=== PATIENT | male | born 1990 | race Caucasian/White ===

== ENCOUNTER 2022-12-04 16:26 | Emergency (ER) | payer SELFPAY ==
[2022-12-04 16:27] VITALS: BP 138/106; PULSE 76; RESP 16; TEMP 36.6; O2SAT 96; BMI 19.0
--- NOTE | 2022-12-04 16:40 | XRR_ITS ---
PROCEDURE INFORMATION: Exam: XR Chest Exam date and time: 12/04/2022 4:54 PM Age: 32 years old Clinical indication: Cough and dyspnea; Additional info: Dyspnea/cough TECHNIQUE: Imaging protocol: Radiologic exam of the chest. Views: 1 view. COMPARISON: CR XR chest 1V [id number] 01/29/2019 6:29 AM FINDINGS: Lungs: Unremarkable. No consolidation. Pleural spaces: Unremarkable. No pleural effusion. No pneumothorax. Heart/Mediastinum: Unremarkable. No cardiomegaly. Bones/joints: Unremarkable. XR/XR chest 1V portable [id number] IMPRESSION: No acute findings.
--- NOTE | 2022-12-04 16:40 | CTR_ITS ---
PROCEDURE INFORMATION: Exam: CT Abdomen And Pelvis With Contrast Exam date and time: 12/04/2022 5:12 PM Age: 32 years old Clinical indication: Abdominal pain; Prior surgery; Surgery date: Post-operative (0-2 days); Additional info: Abd pain TECHNIQUE: Imaging protocol: Computed tomography of the abdomen and pelvis with contrast. Radiation optimization: All CT scans at this facility use at least one of these dose optimization techniques: automated exposure control; mA and/or kV adjustment per patient size (includes targeted exams where dose is matched to clinical indication); or iterative reconstruction. Contrast material: OMNIPAQUE 350; Contrast volume: 95 ml; Contrast route: INTRAVENOUS (IV); Other protocol: This patient has received 0 known CTs and 0 known cardiac nuclear medicine studies in the 12 months prior to the current study. COMPARISON: CT abdomen pelvis w con* [id number] 09/27/2019 5:51 AM RADIATION DOSE METRICS: Total DLP (mGy-cm): 886.63 FINDINGS: Lungs: 3 mm left lower lobe nodule. Diaphragm: Small hiatal hernia. Liver: Normal. No mass. Gallbladder and bile ducts: Normal. No calcified stones. No ductal dilation. Pancreas: Normal. No ductal dilation. Spleen: Normal. No splenomegaly. Adrenal glands: Normal. No mass. Kidneys and ureters: 2.5 mm calculus in the terminal left ureter with mild left hydronephrosis and columning of the ureter. Mild left parenchymal edema and perinephric stranding. The right kidney and collecting system are normal with normal excretion of contrast. No excretion of contrast in the left collecting system. Stomach and bowel: Unremarkable. No obstruction. No mucosal thickening. Appendix: The appendix is visualized and is normal. Intraperitoneal space: Unremarkable. No free air. No significant fluid collection. Vasculature: Unremarkable. No abdominal aortic aneurysm. Lymph nodes: Unremarkable. No enlarged lymph nodes. Urinary bladder: Unremarkable as visualized. Reproductive: Unremarkable as visualized. Bones/joints: Unremarkable. No acute fracture. Soft tissues: Small fat containing umbilical hernia. CT/CT abdomen pelvis w con* [id number] IMPRESSION: 1. 2.5 mm obstructing calculus in the terminal left ureter with mild hydronephrosis and non excretion of contrast. 2. 3 mm left pulmonary nodule. If the patient does not have known cancer, follow up should be based on clinical information because of the low risk of cancer in this age group. (Reference: Sepideh) References: Sepideh Ibarra, et al. Guidelines for Management of Incidental Pulmonary Nodules Detected on CT Images: From the Fleischner Society 2017. Radiology. 2017;284(1):228-243.
--- NOTE | 2022-12-04 16:42 | W.ED.ABDPA2 ---
Documented by User: Brandyn Sharma DO 12/05/22 06:22 HPI - Abdominal Pain General: Chief Complaint: Abdominal Pain Stated Complaint: ABDOMINAL PAIN Time Seen by Provider: 12/04/22 16:32 Source: patient Mode of arrival: EMS History of Present Illness: 32-year-old male presents to the emergency room with complaints of abdominal discomfort. He has a history of pancreatitis he denies any alcohol use. He states his abdominal pain for last 3 days got markedly worse today a week ago he had a couple episodes of bright red blood. No fever sweats or chills. Symptoms worsened to the point where he called the ambulance. He was given pain meds in route and he is somewhat sleepy now but arousable. He still has severe epigastric and left upper quadrant pain. MD elicited complaint: abdominal pain Pertinent past history: other Onset (ago): hour(s) Location: Epigastric and LUQ Quality: sharp Radiation: none Exacerbating factors: nothing Relieving factors: nothing Associated Symptoms: Reports anorexia, change in stool character, poor appetite and vomiting; Denies belching, bloating, change in bowel habits, chills, coffee ground emesis, constipation, GI cramping, diarrhea, dyspepsia, dysuria, excessive flatus, fever(s), heartburn, hematochezia, hematuria, hematemesis, fecal incontinence, loose stools, melena, nausea and syncope Review of Systems Const: Denies: fever(s) or chills Card: Denies: syncope GI: Reports: vomiting and change in stool character; Denies: nausea, hematemesis, coffee ground emesis, heartburn, diarrhea, constipation, bloating, GI cramping, belching, excessive flatus, fecal incontinence, change in bowel habits, hematochezia or melena : Denies: dysuria or hematuria PFS ED PFSH: Medical History (Updated 12/04/22 @ 19:53 by Carlos Gallegos MD) Pancreatitis Social History (Updated 12/04/22 @ 16:48 by Brandyn Sharma DO) Smoking and tobacco status: current every day smoker Alcohol intake: never Physical Exam Const: GENERAL APPEARANCE: cooperative and comfortable ORIENTATION/CONSCIOUSNESS: Yes awake, Yes oriented to person, Yes oriented to place and Yes oriented to time HENMT: COMMON NORMALS: normocephalic, atraumatic and hearing grossly normal bilaterally HEAD & SCALP: normocephalic and atraumatic Resp: COMMON NORMALS: normal respiratory effort, No retractions, No use of accessory muscles and clear to auscultation bilaterally AUSCULTATION: clear to auscultation bilaterally Cardio: COMMON NORMALS: regular rate, regular rhythm and No murmurs present (Cardio) RATE: regular rate RHYTHM: regular rhythm GI: COMMON NORMALS: No hepatosplenomegaly present AUSCULTATION: Yes normoactive bowel sounds PALPATION: Yes Tenderness to palpation present (GI) (Epigastric) Details: LUQ, No Guarding due to palpation present (GI) and Yes No hepatosplenomegaly present : COMMON NORMALS: Yes no CVA tenderness BLADDER/KIDNEY EXAM: Yes no CVA tenderness Back/Pelvis: COMMON NORMALS: no CVA tenderness Extremity: COMMON NORMALS: normal to inspection, capillary refill normal, no clubbing, cyanosis or edema, no calf tenderness and no pedal edema Neuro: SENSORIUM/ORIENTATION: Yes oriented to person, Yes oriented to place and Yes oriented to time Skin: COMMON NORMALS: no rashes or lesions noted GENERAL SKIN EXAM: no rashes or lesions noted Course Vital Signs: Vital signs: Vital Signs Temperature 97.8 F 12/04/22 16:27 Pulse Rate 81 12/04/22 20:16 Respiratory Rate 20 H 12/04/22 20:16 Blood Pressure 146/110 12/04/22 20:16 Pulse Oximetry 92 12/04/22 20:16 Oxygen Delivery Me thod 12/04/22 19:14 MDM - Abdominal Pain Medical Decision Making CT and UA pending. Care signed out to Dr. Gallegos at change of shift. See final notes for diagnosis and disposition. Patient presents here with abdominal pain he did have a kidney stone likely causing his pain no signs of pancreatitis his pain is improved here we will prescribe Bomoseen we will get him follow-up with urology we will give him a urine strainer he is to follow-up and return if worsening he understands agrees to plan. Lab Data 12/04/22 16:52 12/04/22 16:52 Labs/Radiology: Radiology Impressions Abdomen/Pelvis CT 12/04/22 16:40 IMPRESSION: 1. 2.5 mm obstructing calculus in the terminal left ureter with mild hydronephrosis and non excretion of contrast. 2. 3 mm left pulmonary nodule. If the patient does not have known cancer, follow up should be based on clinical information because of the low risk of cancer in this age group. (Reference: Sepideh) References: Sepideh Ibarra, et al. Guidelines for Management of Incidental Pulmonary Nodules Detected on CT Images: From the Fleischner Society 2017. Radiology. 2017;284(1):228-243. Chest X-Ray 12/04/22 16:40 IMPRESSION: No acute findings. Laboratory Results WBC 7.0 10^3/uL (4.0-10.0) 12/04/22 16:52 RBC 4.81 10^6/uL (4.1-5.3) 12/04/22 16:52 Hgb 14.4 g/dL (11.7-16.6) 12/04/22 16:52 Hct 42.6 % (42.0-52.0) 12/04/22 16:52 MCV 88.6 fl (80-94) 12/04/22 16:52 MCH 29.9 pg (28.0-34.0) 12/04/22 16:52 MCHC 33.8 g/dL (30.0-36.0) 12/04/22 16:52 RDW 11.9 % (12.1-15.1) L 12/04/22 16:52 Plt Count 208 10^3/cmm (130-400) 12/04/22 16:52 MPV 9.1 fL (7.4-10.4) 12/04/22 16:52 Neut % (Auto) 55.8 % 12/04/22 16:52 Lymph % (Auto) 35.2 % 12/04/22 16:52 [place] % (Auto) 6.2 % 12/04/22 16:52 Eos % (Auto) 2.0 % 12/04/22 16:52 Baso % (Auto) 0.4 % 12/04/22 16:52 Neut # (Auto) 3.90 10^3/uL (1.8-7.7) 12/04/22 16:52 Lymph # (Auto) 2.5 10^3/uL (0.8-4.8) 12/04/22 16:52 [place] # (Auto) 0.4 10^3/uL (0.2-0.9) 12/04/22 16:52 Eos # (Auto) 0.1 10^3/uL (0.0-0.8) 12/04/22 16:52 Baso # (Auto) 0.0 10^3/uL (0.0-0.1) 12/04/22 16:52 Nucleated RBC % (auto) 0 % 12/04/22 16:52 Nucleated RBCs # 0.0 /100WBC 12/04/22 16:52 Sodium 139 mmol/L (136-145) 12/04/22 16:52 Potassium 3.8 mmol/L (3.5-5.1) 12/04/22 16:52 Chloride 102 mmol/L (98-107) 12/04/22 16:52 Carbon Dioxide 28 mmol/L (22-29) 12/04/22 16:52 Anion Gap 12.8 (5-19) 12/04/22 16:52 BUN 12 mg/dL (6-20) 12/04/22 16:52 Creatinine 1.0 mg/dL (0.7-1.2) 12/04/22 16:52 GFR Calculation 87.7 mL/min (90-130) L 12/04/22 16:52 Glucose 105 mg/dL (65-115) 12/04/22 16:52 Calculated Osmolality 288 mOsm/kg (285-295) 12/04/22 16:52 Calcium 9.6 mg/dL (8.5-10.5) 12/04/22 16:52 Total Bilirubin 0.3 mg/dL (0.15-1.2) 12/04/22 16:52 AST 8 U/L (0-40) 12/04/22 16:52 ALT 26 U/L (0-41) 12/04/22 16:52 Alkaline Phosphatase 88 U/L (40-130) 12/04/22 16:52 Total Protein 7.4 g/dL (6.6-8.7) 12/04/22 16:52 Albumin 4.5 g/dL (3.5-5.2) 12/04/22 16:52 Globulin 2.9 g/dL (1.3-4.6) 12/04/22 16:52 Lipase 72 U/L (13-60) H 12/04/22 16:52 Urine Color Yellow (Yellow) 12/04/22 19:13 Urine Appearance Clear (CLEAR) 12/04/22 19:13 Urine pH 7 (5-7) 12/04/22 19:13 Ur Specific [place] 1.005 (1.005-1.030) 12/04/22 19:13 Urine Protein Neg (Negative) 12/04/22 19:13 Urine Glucose (UA) Norm (Normal) 12/04/22 19:13 Urine Ketones Negative (Negative) 12/04/22 19:13 Urine Blood Neg (Negative) 12/04/22 19:13 Urine Nitrate Negative (Negative) 12/04/22 19:13 Urine Bilirubin Neg (Negative) 12/04/22 19:13 Urine Urobilinogen Neg mg/dL (Negative) 12/04/22 19:13 Ur Leukocyte Esterase Negative (Negative) 12/04/22 19:13 Discharge Plan Discharge Patient Disposition: Home Clinical Impression: Kidney stone Condition: Stable Prescriptions: New hydrocodone-acetaminophen 5-325 mg tablet 1 tab PO Q6H PRN (Reason: pain) Qty: 14 0RF ondansetron 4 mg tablet,disintegrating 4 mg PO Q6H PRN (Reason: nausea and vomiting) Qty: 14 0RF No Action Tylenol Ex Str Rapid Release 500 mg Tablet 1,000 mg PO Q6H PRN (Reason: Pain) ibuprofen 200 mg Tablet 400 mg PO Q6H PRN (Reason: Pain) Discharge Orders: Discharge ED (Routine); Ordered 12/04/22 Ordered By: Carlos Gallegos Referrals: Manuel Harper MD [Physician] - 1-3 days Discharge Diet: Advance as tolerated Discharge Activity: Resume usual activity Patient Instructions: Kidney Stones (ED), Opioid Safety Coding Level of Care Code ED Soaking Pits Supervisor for Chg Fwd Exam Comprehensive Documented by User: Carlos Gallegos MD 12/04/22 19:56 HPI - Abdominal Pain General: Chief Complaint: Abdominal Pain Stated Complaint: ABDOMINAL PAIN Time Seen by Provider: 12/04/22 16:32 PFSH ED PFSH: Medical History (Updated 12/04/22 @ 19:53 by Carlos Gallegos MD) Pancreatitis Social History (Updated 12/04/22 @ 16:48 by Brandyn Sharma DO) Smoking and tobacco status: current every day smoker Alcohol intake: never Course Vital Signs: Vital signs: Vital Signs Temperature 97.8 F 12/04/22 16:27 Pulse Rate 81 12/04/22 20:16 Respiratory Rate 20 H 12/04/22 20:16 Blood Pressure 146/110 12/04/22 20:16 Pulse Oximetry 92 12/04/22 20:16 Oxygen Delivery Me thod 12/04/22 19:14 MDM - Abdominal Pain Medical Decision Making Patient presents here with abdominal pain he did have a kidney stone likely causing his pain no signs of pancreatitis his pain is improved here we will prescribe Bomoseen we will get him follow-up with urology we will give him a urine strainer he is to follow-up and return if worsening he understands agrees to plan. Lab Data 12/04/22 16:52 12/04/22 16:52 Labs/Radiology: Radiology Impressions Abdomen/Pelvis CT 12/04/22 16:40 IMPRESSION: 1. 2.5 mm obstructing calculus in the terminal left ureter with mild hydronephrosis and non excretion of contrast. 2. 3 mm left pulmonary nodule. If the patient does not have known cancer, follow up should be based on clinical information because of the low risk of cancer in this age group. (Reference: Sepideh) References: Sepideh Ibarra, et al. Guidelines for Management of Incidental Pulmonary Nodules Detected on CT Images: From the Fleischner Society 2017. Radiology. 2017;284(1):228-243. Chest X-Ray 12/04/22 16:40 IMPRESSION: No acute findings. Laboratory Results WBC 7.0 10^3/uL (4.0-10.0) 12/04/22 16:52 RBC 4.81 10^6/uL (4.1-5.3) 12/04/22 16:52 Hgb 14.4 g/dL (11.7-16.6) 12/04/22 16:52 Hct 42.6 % (42.0-52.0) 12/04/22 16:52 MCV 88.6 fl (80-94) 12/04/22 16:52 MCH 29.9 pg (28.0-34.0) 12/04/22 16:52 MCHC 33.8 g/dL (30.0-36.0) 12/04/22 16:52 RDW 11.9 % (12.1-15.1) L 12/04/22 16:52 Plt Count 208 10^3/cmm (130-400) 12/04/22 16:52 MPV 9.1 fL (7.4-10.4) 12/04/22 16:52 Neut % (Auto) 55.8 % 12/04/22 16:52 Lymph % (Auto) 35.2 % 12/04/22 16:52 [place] % (Auto) 6.2 % 12/04/22 16:52 Eos % (Auto) 2.0 % 12/04/22 16:52 Baso % (Auto) 0.4 % 12/04/22 16:52 Neut # (Auto) 3.90 10^3/uL (1.8-7.7) 12/04/22 16:52 Lymph # (Auto) 2.5 10^3/uL (0.8-4.8) 12/04/22 16:52 [place] # (Auto) 0.4 10^3/uL (0.2-0.9) 12/04/22 16:52 Eos # (Auto) 0.1 10^3/uL (0.0-0.8) 12/04/22 16:52 Baso # (Auto) 0.0 10^3/uL (0.0-0.1) 12/04/22 16:52 Nucleated RBC % (auto) 0 % 12/04/22 16:52 Nucleated RBCs # 0.0 /100WBC 12/04/22 16:52 Sodium 139 mmol/L (136-145) 12/04/22 16:52 Potassium 3.8 mmol/L (3.5-5.1) 12/04/22 16:52 Chloride 102 mmol/L (98-107) 12/04/22 16:52 Carbon Dioxide 28 mmol/L (22-29) 12/04/22 16:52 Anion Gap 12.8 (5-19) 12/04/22 16:52 BUN 12 mg/dL (6-20) 12/04/22 16:52 Creatinine 1.0 mg/dL (0.7-1.2) 12/04/22 16:52 GFR Calculation 87.7 mL/min (90-130) L 12/04/22 16:52 Glucose 105 mg/dL (65-115) 12/04/22 16:52 Calculated Osmolality 288 mOsm/kg (285-295) 12/04/22 16:52 Calcium 9.6 mg/dL (8.5-10.5) 12/04/22 16:52 Total Bilirubin 0.3 mg/dL (0.15-1.2) 12/04/22 16:52 AST 8 U/L (0-40) 12/04/22 16:52 ALT 26 U/L (0-41) 12/04/22 16:52 Alkaline Phosphatase 88 U/L (40-130) 12/04/22 16:52 Total Protein 7.4 g/dL (6.6-8.7) 12/04/22 16:52 Albumin 4.5 g/dL (3.5-5.2) 12/04/22 16:52 Globulin 2.9 g/dL (1.3-4.6) 12/04/22 16:52 Lipase 72 U/L (13-60) H 12/04/22 16:52 Urine Color Yellow (Yellow) 12/04/22 19:13 Urine Appearance Clear (CLEAR) 12/04/22 19:13 Urine pH 7 (5-7) 12/04/22 19:13 Ur Specific [place] 1.005 (1.005-1.030) 12/04/22 19:13 Urine Protein Neg (Negative) 12/04/22 19:13 Urine Glucose (UA) Norm (Normal) 12/04/22 19:13 Urine Ketones Negative (Negative) 12/04/22 19:13 Urine Blood Neg (Negative) 12/04/22 19:13 Urine Nitrate Negative (Negative) 12/04/22 19:13 Urine Bilirubin Neg (Negative) 12/04/22 19:13 Urine Urobilinogen Neg mg/dL (Negative) 12/04/22 19:13 Ur Leukocyte Esterase Negative (Negative) 12/04/22 19:13 Discharge Plan Discharge Patient Disposition: Home Clinical Impression: Kidney stone Condition: Stable Prescriptions: New hydrocodone-acetaminophen 5-325 mg tablet 1 tab PO Q6H PRN (Reason: pain) Qty: 14 0RF ondansetron 4 mg tablet,disintegrating 4 mg PO Q6H PRN (Reason: nausea and vomiting) Qty: 14 0RF No Action Tylenol Ex Str Rapid Release 500 mg Tablet 1,000 mg PO Q6H PRN (Reason: Pain) ibuprofen 200 mg Tablet 400 mg PO Q6H PRN (Reason: Pain) Discharge Orders: Discharge ED (Routine); Ordered 12/04/22 Ordered By: Carlos Gallegos Referrals: Manuel Harper MD [Physician] - 1-3 days Discharge Diet: Advance as tolerated Discharge Activity: Resume usual activity Patient Instructions: Kidney Stones (ED), Opioid Safety Coding Level of Care Code ED Soaking Pits Supervisor for Rockg Fwd Exam Comprehensive
--- NOTE | 2022-12-04 16:55 | PC.PHAR ---
pt states he takes no rx medications states just takes ibuprofen and tylenlol prn
[2022-12-04 16:59] LABS: Basophils % 0.4 %; Eosinophils # 0.1 10^3/uL (0.0-0.8); Hematocrit 42.6 % (42.0-52.0); Hemoglobin 14.4 g/dL (11.7-16.6); Lymphocytes # 2.5 10^3/uL (0.8-4.8); Lymphocytes % 35.2 %; Mean Corpuscular HGB Conc 33.8 g/dL (30.0-36.0); Mean Corpuscular Hemoglobin 29.9 pg (28.0-34.0); Mean Corpuscular Volume 88.6 fl (80-94); Mean Platelet Volume 9.1 fL (7.4-10.4); Monocytes # 0.4 10^3/uL (0.2-0.9); Monocytes % 6.2 %; Neutrophils % 55.8 %; Nucleated Red Blood Cells % 0 %; Platelet Count 208 10^3/cmm (130-400); Red Blood Count 4.81 10^6/uL (4.1-5.3); Red Cell Distribution Width 11.9 % (12.1-15.1)
--- NOTE | 2022-12-04 16:59 | ECG_ITS ---
[facility] Test Date: 2022-12-04 Pat Name: Vaughn Mejía Department: Room: Gender: Male Manager Steel: : 1990 Requested By: Brandyn Conroy Order Number: [id number] Elder MD: Ludy Feng M.D. Measurements Intervals [place] Rate: 71 P: 55 MI: 150 QRS: 40 QRSD: 100 T: 34 QT: 377 QTc: 410 Interpretive Statements SINUS RHYTHM POSSIBLE RIGHT VENTRICULAR CONDUCTION DELAY [RSR (QR) IN V1/V2] No previous ECG available for comparison Electronically Signed On 12-04-2022 23:45:31 WOOD MILLING MACHINE HAND by Ludy Feng M.D. [id number]
[2022-12-04 17:18] LABS: Alanine Aminotransferase 26 U/L (0-41); Albumin Level 4.5 g/dL (3.5-5.2); Alkaline Phosphatase 88 U/L (40-130); Anion Gap 12.8 (5-19); Aspartate Amino Transferase 8 U/L (0-40); Blood Urea Nitrogen 12 mg/dL (6-20); Calcium 9.6 mg/dL (8.5-10.5); Carbon Dioxide 28 mmol/L (22-29); Chloride 102 mmol/L (98-107); Creatinine Clr Calc Pharmacy 97.0185; Globulin 2.9 g/dL (1.3-4.6); Glomerular Filtration Rate 87.7 mL/min (90-130); Glucose 105 mg/dL (65-115); Lipase 72 U/L (13-60); Osmolality Calculated 288 mOsm/kg (285-295); Potassium 3.8 mmol/L (3.5-5.1); Sodium 139 mmol/L (136-145); Total Bilirubin 0.3 mg/dL (0.15-1.2); Total Protein 7.4 g/dL (6.6-8.7)
[2022-12-04] MEDS: ondansetron 2 mg/ML SDV 2 mL 4 MG IVP ×2 (17:31→18:25)
[2022-12-04] MEDS: famotidine 20 mg/2 mL INJ 40 MG IVP (17:31)
[2022-12-04] MEDS: sodium chloride 0.9% 1,000 ML 999 ML IV ×2 (17:32→19:01)
[2022-12-04 18:23] VITALS: RESP 20
[2022-12-04] MEDS: morphine 4 mg/mL SDV 1 mL IVP (18:23)
[2022-12-04] MEDS: metoclopramide 5 mg/mL SDV 2 mL 10 MG IVP (18:42)
[2022-12-04] MEDS: diphenhydrAMINE 50 mg/mL SDV 1mL IVP (18:42)
[2022-12-04 19:14] VITALS: BP 151/111; PULSE 81; RESP 16; O2SAT 96
[2022-12-04 19:26] LABS: Add Urine Microscopic? NO; Charge for UA Resulting for Rev
[2022-12-04 19:29] LABS: Bilirubin Urine Neg (Negative); Blood Urine Neg (Negative); Glucose Urine UA Norm (Normal); Ketones Urine Negative (Negative); Leukocyte Esterase Urine Negative (Negative); Nitrate Urine Negative (Negative); Protein Urine Neg (Negative); Specific Gravity, Urine 1.005 (1.005-1.030); Urine Appearance Clear (CLEAR); Urine Color Yellow (Yellow); Urobilinogen Urine Neg (Negative); pH Urine 7 (5-7)
[2022-12-04] MEDS: HYDROcodone-acetaminophen 5-325 mg Tablet 2 TAB PO (20:14)
[2022-12-04 20:16] VITALS: BP 146/110; PULSE 81; RESP 20; O2SAT 92
--- NOTE | 2022-12-05 10:42 | DCPLANNER ---
Addendum entered by Cristal Carrasco 12/10/22 13:06: material requirements planning manager called [facility] to confirm that patients information had been received. material requirements planning manager was told that patients information was received, it will be reviewed, and clinic will call patient with appointment information. Addendum entered by Cristal Carrasco 12/08/22 14:19: material requirements planning manager called phone number [phone] - no one at this number by the name of the patient. material requirements planning manager called phone number [phone] no answer and no voicemail set up. There is no primary care physician listed in chart. Referral faxed to [place]. Addendum entered by Cristal Carrasco 12/05/22 15:25: material requirements planning manager received the following message from the urology clinic regarding follow up appointment: Refer Elsewhere. Thank you. On 12/05/22 @ 11:19 Cristal Carrasco Wrote To Urology Front Office Just to clarify, do I need to refer patient somewhere else, or will an appointment be scheduled for patient when he returns? On 12/05/22 @ 10:43 Elisabeth Ang Wrote To Cristal Carrasco Dr. Harper is out of the office until 12/15/22 material requirements planning manager called phone number [phone] - no one by the name of Vaughn was at that number. material requirements planning manager called phone number [phone] - unable to speak with anyone at this time, and unable to leave a voicemail for patient. Original Note: material requirements planning manager had message to schedule a follow up appointment for patient with urology. material requirements planning manager sent patients information to the front office staff at urology. Patients information will be printed and reviewed. Clinic will call patient with appointment information.
== END 2022-12-04 20:18 | disposition home or self-care (01) ==
PROVIDERS: Family Medicine; Emergency Provider Emergency Medicine
DX: N13.2 Hydronephrosis with renal and ureteral calculous obstruction (principal); F17.210 Nicotine dependence, cigarettes, uncomplicated
CPT/HCPCS: 36415; 71045; 74177; 80053; 81003; 83690; 85025; 93005; 96361; 96374; 96375; 99285; J1200; J2270; J2405; J2765; J3490; J7030

== ENCOUNTER 2022-12-06 02:22 | Emergency (ER) | payer SELFPAY ==
[2022-12-06 02:29] VITALS: BP 146/109; PULSE 124; RESP 28; TEMP 36.8; O2SAT 94
[2022-12-06 02:30] VITALS: BMI 19.0
[2022-12-06 02:44] LABS: Basophils % 0.2 %; Hematocrit 44.8 % (42.0-52.0); Lymphocytes # 1.6 10^3/uL (0.8-4.8); Lymphocytes % 11.8 %; Mean Corpuscular HGB Conc 33.5 g/dL (30.0-36.0); Mean Corpuscular Hemoglobin 29.6 pg (28.0-34.0); Mean Corpuscular Volume 88.4 fl (80-94); Mean Platelet Volume 9.4 fL (7.4-10.4); Monocytes % 7.5 %; Neutrophils # 10.53 10^3/uL (1.8-7.7); Neutrophils % 80.1 %; Nucleated Red Blood Cells % 0 %; Platelet Count 246 10^3/cmm (130-400); Red Blood Count 5.07 10^6/uL (4.1-5.3); White Blood Count 13.1 10^3/uL (4.0-10.0)
[2022-12-06 02:57] LABS: INR 1.13 (0.8-1.2)
[2022-12-06] MEDS: sodium chloride 0.9% 1,000 ML 999 ML IV ×2 (02:58→04:15)
[2022-12-06] MEDS: ketorolac 30 mg/mL INJ 15 MG IVP (02:58)
[2022-12-06] MEDS: ondansetron 2 mg/ML SDV 2 mL 4 MG IVP (02:59)
[2022-12-06 03:00] LABS: Alanine Aminotransferase 21 U/L (0-41); Alkaline Phosphatase 89 U/L (40-130); Anion Gap 22.5 (5-19); Aspartate Amino Transferase 8 U/L (0-40); Blood Urea Nitrogen 13 mg/dL (6-20); Calcium 9.8 mg/dL (8.5-10.5); Carbon Dioxide 22 mmol/L (22-29); Chloride 97 mmol/L (98-107); Creatinine Clr Calc Pharmacy 80.8487; Globulin 3.6 g/dL (1.3-4.6); Glomerular Filtration Rate 71.1 mL/min (90-130); Glucose 133 mg/dL (65-115); Lipase 24 U/L (13-60); Osmolality Calculated 288 mOsm/kg (285-295); Potassium 3.5 mmol/L (3.5-5.1); Sodium 138 mmol/L (136-145); Total Bilirubin 0.9 mg/dL (0.15-1.2); Total Protein 8.6 g/dL (6.6-8.7)
[2022-12-06 03:01] VITALS: RESP 18
[2022-12-06] MEDS: morphine 4 mg/mL SDV 1 mL IVP ×2 (03:01→05:24)
--- NOTE | 2022-12-06 03:09 | XRR_ITS ---
PROCEDURE INFORMATION: Exam: XR Abdomen Exam date and time: 12/06/2022 3:13 AM Age: 32 years old Clinical indication: Abdominal pain; Flank; Left; Additional info: L flank pain HX ureteral stone TECHNIQUE: Imaging protocol: Radiologic exam of the abdomen. Views: Frontal supine view of the abdomen. 1 View. COMPARISON: CT abdomen pelvis w con* [id number] 12/04/2022 5:12 PM FINDINGS: Gastrointestinal tract: No dilated bowel to suggest obstruction. Organs: No specific abnormal calcifications. The distal left ureteral calculus seen on the recent CT scan is not obviously visible, however I do not think it was easily visible on the injection molding supervisor radiograph from the CT exam either. Bones/joints: No significant acute finding. XR/XR KUB portable [id number] IMPRESSION: 1. No definite/visible ureteral calculus, see above discussion. 2. Nonspecific abdomen, no evidence of obstruction. 3. Other details discussed above.
[2022-12-06 04:04] LABS: Add Urine Microscopic? YES; Bilirubin Urine Neg (Negative); Blood Urine 3+ (Negative); Glucose Urine UA Norm (Normal); Ketones Urine 2+ (Negative); Leukocyte Esterase Urine Negative (Negative); Nitrate Urine Negative (Negative); Protein Urine 2+ (Negative); Specific Gravity, Urine 1.025 (1.005-1.030); Urine Appearance Clear (CLEAR); Urine Color Yellow (Yellow); Urobilinogen Urine Neg (Negative); pH Urine 5 (5-7)
[2022-12-06 04:06] LABS: Bacteria Urine TRACE /hpf; Mucus Urine 2+ /hpf; RBC Urine 0-4 /hpf (0-2); Squamous Epithelial Cell Urine 0-4 /hpf (0-5); WBC Urine 0-4 /hpf (0-5)
[2022-12-06 04:07] LABS: Add Urine Culture? No
--- NOTE | 2022-12-06 05:21 | CTR_ITS ---
PROCEDURE INFORMATION: Exam: CT Chest With Contrast; Diagnostic Exam date and time: 12/06/2022 5:37 AM Age: 32 years old Clinical indication: Abdominal pain; Flank; Left; Chest pressure; Additional info: Multiple episodes vomiting, now bloody with pain in chest. , HX of left ureteral stone TECHNIQUE: Imaging protocol: Diagnostic computed tomography of the chest with contrast. Radiation optimization: All CT scans at this facility use at least one of these dose optimization techniques: automated exposure control; mA and/or kV adjustment per patient size (includes targeted exams where dose is matched to clinical indication); or iterative reconstruction. Contrast material: OMNI 350; Contrast volume: 100 ml; Contrast route: INTRAVENOUS (IV); Other protocol: This patient has received [address] and 0 known cardiac nuclear medicine studies in the 12 months prior to the current study. COMPARISON: CR XR chest 1V portable [id number] 12/04/2022 4:54 PM RADIATION DOSE METRICS: Total DLP (mGy-cm): 730.3 FINDINGS: Lungs: Several small 3-5 mm nodules in the lungs. If the patient does not have known cancer, follow up should be based on clinical information because of the low risk of cancer in this age group. (Reference: Sepideh). Mild probable atelectasis in the lower lungs. No other significant parenchymal lung opacity or mass. Pleural spaces: No evidence for pneumomediastinum or pneumothorax. No pleural fluid. Heart: No significant pericardial effusion. Lymph nodes: No significant hilar or mediastinal lymphadenopathy. Vasculature: No definite evidence of acute pulmonary embolus, within limits of this standard CT thorax exam. Generally, the distal segmental and subsegmental/peripheral vessels are not well evaluated/visualized on this exam. No evidence of thoracic aortic dissection or focal aneurysm. Diaphragm: Small hiatal hernia, about 2.5 cm in diameter. Suspect some mucosal/wall thickening involving the esophagus, although this could be a transient appearance. While nonspecific, the findings could represent evidence for esophagitis. Please correlate clinically. No mediastinal gas or fluid. Bones/joints: No significant acute abnormality. Soft tissues: No significant acute abnormality. REFERENCES: Sepideh Ibarra et al. Guidelines for Management of Incidental Pulmonary Nodules Detected on CT Images: From the Fleischner Society 2017. Radiology. 2017;284(1):228-243. PROCEDURE INFORMATION: Exam: CT Abdomen And Pelvis With Contrast Exam date and time: 12/06/2022 5:37 AM Age: 32 years old Clinical indication: Abdominal pain; Flank; Left; Chest pressure; Additional info: Multiple episodes vomiting, now bloody with pain in chest. , HX of left ureteral stone TECHNIQUE: Imaging protocol: Computed tomography of the abdomen and pelvis with contrast. Radiation optimization: All CT scans at this facility use at least one of these dose optimization techniques: automated exposure control; mA and/or kV adjustment per patient size (includes targeted exams where dose is matched to clinical indication); or iterative reconstruction. Contrast material: OMNI 350; Contrast volume: 100 ml; Contrast route: INTRAVENOUS (IV); Other protocol: This patient has received [address] and 0 known cardiac nuclear medicine studies in the 12 months prior to the current study. COMPARISON: CT abdomen pelvis w con* [id number] 12/04/2022 5:12 PM RADIATION DOSE METRICS: Total DLP (mGy-cm): 391.6 FINDINGS: Diaphragm: Small hiatal hernia. Suspect some mucosal/wall thickening involving the lower esophagus, although this could be a transient appearance. While nonspecific, the findings could represent evidence for esophagitis. Please correlate clinically. No lower mediastinal gas or fluid. Liver: There is fatty infiltration of the liver. Gallbladder and bile ducts: Contrast has been excreted into the gallbladder. No other definite gallbladder abnormality by CT. No biliary tree dilation. Pancreas: Unremarkable. Spleen: Unremarkable. Adrenal glands: Unremarkable. Kidneys and ureters: There is delayed excretion of contrast by the left kidney. Slight increased amount of left periureteric and perinephric fluid in the interval. Mild left hydronephrosis and hydroureter, similar to the prior exam. As before, there is a 3 mm distal left ureteral calculus, at the UVJ. The calculus has moved about 5 mm distally when compared with the prior exam. The calculus is now probably in the intramural portion of the distal ureter. It is less likely that it has already been passed into the urinary bladder. Please correlate clinically. There appears to be some edema at the left UVJ. The right kidney appears essentially unremarkable. Stomach and bowel: No significant bowel distention. There are no CT findings to strongly suggest diverticulitis. Appendix: The appendix is visualized and appears normal. Intraperitoneal space: No free intraperitoneal air, or ascites. Vasculature: No evidence for abdominal aortic aneurysm. Lymph nodes: No retroperitoneal adenopathy. Urinary bladder: Possibly some mild diffuse urinary bladder wall thickening. However, evaluation is somewhat limited, as the bladder is not well distended. While nonspecific, this could indicate evidence for cystitis. Please correlate clinically. Reproductive: Essentially unremarkable for age. Bones/joints: No significant acute finding. Soft tissues: Tiny umbilical hernia, containing only fat. CT/CT chest abdpel w/*[id number] IMPRESSION: 1. No pulmonary emboli within limits of this exam, see above. 2. No thoracic aortic dissection or aneurysm 3. Several small lung nodules, see above discussion. 4. Mild probable atelectasis in the lower lungs. 5. Otherwise essentially clear lungs, no pleural fluid. 6. Small hiatal hernia. Possibly some mucosal/wall thickening involving the esophagus, see above discussion. 7. Other findings discussed above. IMPRESSION: 1. As before, there is a 3 mm distal left ureteral calculus, see above details. 2. Mild left hydronephrosis and hydroureter, similar the prior exam. 3. Mild left periureteric and perinephric fluid, slightly increased in the interval. 4. Possible mild urinary bladder wall thickening, see above. 5. No free air or significant bowel distention. No evidence for bowel obstruction. 6. Normal appendix. 7. Small hiatal hernia. Possibly some thickening of the lower esophagus, see above discussion. 8. Other findings discussed above.
[2022-12-06 05:22] VITALS: BP 158/104; PULSE 90; RESP 16; O2SAT 97
[2022-12-06] MEDS: haloperidol inj 5 mg/mL INJ 1 mL 3 MG IVP (05:23)
[2022-12-06 05:24] VITALS: RESP 16
[2022-12-06] MEDS: iohexol 350 mg/mL 500 mL Btl (per mL) IV (05:31)
--- NOTE | 2022-12-06 05:42 | W.ED.NAVMDI ---
Documented by User: Darren Craig DO 12/06/22 18:30 HPI - Nausea/Vomiting/Diarrhea General: Chief complaint: Nausea/Vomiting/Diarrhea Stated complaint: vomitting blood Time Seen by Provider: 12/06/22 02:42 Source: patient History of Present Illness: 32-year-old male diagnosed yesterday with a renal stone. He was placed on pain medication and antiemetic. He returns this morning with continued pain, as well as vomiting he notes that he has vomited multiple times in the last 12 hours especially, despite medication. He began to notice small clumps of red blood in his vomitus which worried him. No fever. He does not believe he has felt the stone pass. He still has some left-sided flank pain. MD elicited complaint: nausea, vomiting and abdominal pain Pertinent past history: other Onset (ago): hour(s) Description of vomiting: watery Associated nausea: Yes Associated abdominal pain: Yes Location of pain: L flank Pain consistency: constant Associated symtoms: Reports chest pain, nausea and short of breath; Denies altered mental status, cough, fevers/chills or headache(s) Review of Systems ENMT: Reports: throat pain Card: Reports: chest pain GI: Reports: nausea : Reports: flank pain Neuro: Denies: headache(s) PFSH ED PFSH: Medical History Pancreatitis Social History Smoking and tobacco status: current every day smoker Alcohol intake: never Physical Exam Const: EXAM LIMITATIONS: no altered mental status GENERAL APPEARANCE: cooperative and ill appearing (mildly) HENMT: COMMON NORMALS: normocephalic and atraumatic HEAD & SCALP: normocephalic and atraumatic Eye: COMMON NORMALS: Equal, round and reactive pupils present and EOMs intact bilaterally PUPIL: Yes Equal, round and reactive pupils present Chest: CHEST: Yes Symmetrical chest wall rise Resp: COMMON NORMALS: normal respiratory effort, No use of accessory muscles and clear to auscultation bilaterally AUSCULTATION: clear to auscultation bilaterally Cardio: COMMON NORMALS: regular rate and regular rhythm RATE: regular rate RHYTHM: regular rhythm GI: COMMON NORMALS: Normal to inspection, nondistended, normoactive bowel sounds present PALPATION: Yes Tenderness to palpation present (GI) Details: LLQ : BLADDER/KIDNEY EXAM: Yes CVA tenderness on the left Back/Pelvis: GENERAL BACK: Yes CVA tenderness Neuro: ROMAN COMA SCALE: document GCS findings [place] coma scale eye opening: Spontaneous Roman coma scale verbal response: Orientated Roman coma scale motor response: Obey commands Roman coma scale total score: 15 Course Vital Signs: Vital signs: Vital Signs Temperature 98.3 F 12/06/22 02:29 Pulse Rate 74 12/06/22 07:25 Respiratory Rate 13 12/06/22 07:25 Blood Pressure 132/80 12/06/22 07:25 Pulse Oximetry 96 12/06/22 07:25 Oxygen Delivery Me thod 12/06/22 07:25 MDM - Nausea/Vomiting/Diarrhea Medical Decision Making CT scan yesterday showed a 2.5 mm calculus. No infection. White blood cell count is 13. Hemoglobin is 15. He felt improvement after Toradol morphine and Zofran here. Since that time, though, he has continued to vomit. Only very small amounts of blood were noted in the vomitus. He complains now of a closing feeling at the base of his throat and of his chest. He thinks this is where the bleeding is coming from. It is possible that he has retched hard enough to create a Clotilde-Jain tear, etc. We will send him to the CT scanner to rule this out. Results are pending. He will be checked out to the oncoming physician at shift change. Lab Data 12/06/22 02:35 12/06/22 02:35 Radiology Impressions KUB X-Ray 12/06/22 03:09 IMPRESSION: 1. No definite/visible ureteral calculus, see above discussion. 2. Nonspecific abdomen, no evidence of obstruction. 3. Other details discussed above. Chest/Abdomen/Pelvis CT 12/06/22 05:21 IMPRESSION: 1. No pulmonary emboli within limits of this exam, see above. 2. No thoracic aortic dissection or aneurysm 3. Several small lung nodules, see above discussion. 4. Mild probable atelectasis in the lower lungs. 5. Otherwise essentially clear lungs, no pleural fluid. 6. Small hiatal hernia. Possibly some mucosal/wall thickening involving the esophagus, see above discussion. 7. Other findings discussed above. IMPRESSION: 1. As before, there is a 3 mm distal left ureteral calculus, see above details. 2. Mild left hydronephrosis and hydroureter, similar the prior exam. 3. Mild left periureteric and perinephric fluid, slightly increased in the interval. 4. Possible mild urinary bladder wall thickening, see above. 5. No free air or significant bowel distention. No evidence for bowel obstruction. 6. Normal appendix. 7. Small hiatal hernia. Possibly some thickening of the lower esophagus, see above discussion. 8. Other findings discussed above. Laboratory Results WBC 13.1 10^3/uL (4.0-10.0) H 12/06/22 02:35 RBC 5.07 10^6/uL (4.1-5.3) 12/06/22 02:35 Hgb 15.0 g/dL (11.7-16.6) 12/06/22 02:35 Hct 44.8 % (42.0-52.0) 12/06/22 02:35 MCV 88.4 fl (80-94) 12/06/22 02:35 MCH 29.6 pg (28.0-34.0) 12/06/22 02:35 MCHC 33.5 g/dL (30.0-36.0) 12/06/22 02:35 RDW 12.0 % (12.1-15.1) L 12/06/22 02:35 Plt Count 246 10^3/cmm (130-400) 12/06/22 02:35 MPV 9.4 fL (7.4-10.4) 12/06/22 02:35 Neut % (Auto) 80.1 % 12/06/22 02:35 Lymph % (Auto) 11.8 % 12/06/22 02:35 Sebastian % (Auto) 7.5 % 12/06/22 02:35 Eos % (Auto) 0.0 % 12/06/22 02:35 Baso % (Auto) 0.2 % 12/06/22 02:35 Neut # (Auto) 10.53 10^3/uL (1.8-7.7) H 12/06/22 02:35 Lymph # (Auto) 1.6 10^3/uL (0.8-4.8) 12/06/22 02:35 Sebastian # (Auto) 1.0 10^3/uL (0.2-0.9) H 12/06/22 02:35 Eos # (Auto) 0.0 10^3/uL (0.0-0.8) 12/06/22 02:35 Baso # (Auto) 0.0 10^3/uL (0.0-0.1) 12/06/22 02:35 Nucleated RBC % (auto) 0 % 12/06/22 02:35 Nucleated RBCs # 0.0 /100WBC 12/06/22 02:35 PT 14.80 SECONDS (12.1-14.9) 12/06/22 02:35 INR 1.13 (0.8-1.2) 12/06/22 02:35 APTT 29.0 SECONDS (23.9-36.7) 12/06/22 02:35 Sodium 138 mmol/L (136-145) 12/06/22 02:35 Potassium 3.5 mmol/L (3.5-5.1) 12/06/22 02:35 Chloride 97 mmol/L (98-107) L 12/06/22 02:35 Carbon Dioxide 22 mmol/L (22-29) 12/06/22 02:35 Anion Gap 22.5 (5-19) H 12/06/22 02:35 BUN 13 mg/dL (6-20) 12/06/22 02:35 Creatinine 1.2 mg/dL (0.7-1.2) 12/06/22 02:35 GFR Calculation 71.1 mL/min (90-130) L 12/06/22 02:35 Glucose 133 mg/dL (65-115) H 12/06/22 02:35 Calculated Osmolality 288 mOsm/kg (285-295) 12/06/22 02:35 Calcium 9.8 mg/dL (8.5-10.5) 12/06/22 02:35 Total Bilirubin 0.9 mg/dL (0.15-1.2) 12/06/22 02:35 AST 8 U/L (0-40) 12/06/22 02:35 ALT 21 U/L (0-41) 12/06/22 02:35 Alkaline Phosphatase 89 U/L (40-130) 12/06/22 02:35 Total Protein 8.6 g/dL (6.6-8.7) 12/06/22 02:35 Albumin 5.0 g/dL (3.5-5.2) 12/06/22 02:35 Globulin 3.6 g/dL (1.3-4.6) 12/06/22 02:35 Lipase 24 U/L (13-60) 12/06/22 02:35 Urine Color Yellow (Yellow) 12/06/22 03:50 Urine Appearance Clear (CLEAR) 12/06/22 03:50 Urine pH 5 (5-7) 12/06/22 03:50 Ur Specific [place] 1.025 (1.005-1.030) 12/06/22 03:50 Urine Protein 2+ (Negative) H 12/06/22 03:50 Urine Glucose (UA) Norm (Normal) 12/06/22 03:50 Urine Ketones 2+ (Negative) H 12/06/22 03:50 Urine Blood 3+ (Negative) H 12/06/22 03:50 Urine Nitrate Negative (Negative) 12/06/22 03:50 Urine Bilirubin Neg (Negative) 12/06/22 03:50 Urine Urobilinogen Neg mg/dL (Negative) 12/06/22 03:50 Ur Leukocyte Esterase Negative (Negative) 12/06/22 03:50 Urine RBC 0-4 /hpf (0-2) H 12/06/22 03:50 Urine WBC 0-4 /hpf (0-5) H 12/06/22 03:50 Ur Squamous Epith Cells 0-4 /hpf (0-5) H 12/06/22 03:50 Amorphous Sediment Not Reportable 12/06/22 03:50 Urine Bacteria Trace /hpf (NONE) 12/06/22 03:50 Urine Mucus 2+ /hpf 12/06/22 03:50 Discharge Plan Discharge Patient Disposition: Home Clinical Impression: Kidney stone Condition: Stable Prescriptions: New Reglan 10 mg tablet 10 mg PO Q6H PRN (Reason: nausea and vomiting) Qty: 20 0RF No Action Tylenol Ex Str Rapid Release 500 mg Tablet 1,000 mg PO Q6H PRN (Reason: Pain) ibuprofen 200 mg Tablet 400 mg PO Q6H PRN (Reason: Pain) hydrocodone-acetaminophen 5-325 mg tablet 1 tab PO Q6H PRN (Reason: pain) Qty: 14 0RF ondansetron 4 mg tablet,disintegrating 4 mg PO Q6H PRN (Reason: nausea and vomiting) Qty: 14 0RF Discharge Orders: Discharge ED (Routine); Ordered 12/06/22 Ordered By: Carlos Gallegos Referrals: Manuel Harper MD [Physician] - 1-3 days Discharge Diet: Advance as tolerated Discharge Activity: Resume usual activity Patient Instructions: Kidney Stones (ED), Opioid Safety Coding Level of Care Code ED [employer] Developer for Chg Fwd Exam Comprehensive Documented by User: Carlos Gallegos MD 12/06/22 07:25 HPI - Nausea/Vomiting/Diarrhea General: Chief complaint: Nausea/Vomiting/Diarrhea Stated complaint: vomitting blood Time Seen by Provider: 12/06/22 02:42 PFSH ED PFSH: Medical History Pancreatitis Social History Smoking and tobacco status: current every day smoker Alcohol intake: never Physical Exam Neuro: ROMAN COMA SCALE: document GCS findings Roman coma scale total score: 15 Course Vital Signs: Vital signs: Vital Signs Temperature 98.3 F 12/06/22 02:29 Pulse Rate 74 12/06/22 07:25 Respiratory Rate 13 12/06/22 07:25 Blood Pressure 132/80 12/06/22 07:25 Pulse Oximetry 96 12/06/22 07:25 Oxygen Delivery Me thod 12/06/22 07:25 MDM - Nausea/Vomiting/Diarrhea Medical Decision Making CT scan yesterday showed a 2.5 mm calculus. No infection. White blood cell count is 13. Hemoglobin is 15. He felt improvement after Toradol morphine and Zofran here. Since that time, though, he has continued to vomit. Only very small amounts of blood were noted in the vomitus. He complains now of a closing feeling at the base of his throat and of his chest. He thinks this is where the bleeding is coming from. It is possible that he has retched hard enough to create a Clotilde-Jain tear, etc. We will send him to the CT scanner to rule this out. Results are pending. He will be checked out to the oncoming physician at shift change. Patient presents here with vomiting along with abdominal pain he still has a kidney stone should pass pain is controlled here his vomiting is controlled he is stable for discharge. Lab Data 12/06/22 02:35 12/06/22 02:35 Radiology Impressions KUB X-Ray 12/06/22 03:09 IMPRESSION: 1. No definite/visible ureteral calculus, see above discussion. 2. Nonspecific abdomen, no evidence of obstruction. 3. Other details discussed above. Chest/Abdomen/Pelvis CT 12/06/22 05:21 IMPRESSION: 1. No pulmonary emboli within limits of this exam, see above. 2. No thoracic aortic dissection or aneurysm 3. Several small lung nodules, see above discussion. 4. Mild probable atelectasis in the lower lungs. 5. Otherwise essentially clear lungs, no pleural fluid. 6. Small hiatal hernia. Possibly some mucosal/wall thickening involving the esophagus, see above discussion. 7. Other findings discussed above.
[2022-12-06 07:25] VITALS: BP 132/80; PULSE 74; RESP 13; O2SAT 96
== END 2022-12-06 07:35 | disposition home or self-care (01) ==
PROVIDERS: Emergency Medicine; Nurse Practitioner Family; Emergency Provider Emergency Medicine
DX: N13.2 Hydronephrosis with renal and ureteral calculous obstruction (principal); F17.210 Nicotine dependence, cigarettes, uncomplicated
CPT/HCPCS: 71260; 74018; 74177; 80053; 81001; 83690; 85025; 85610; 85730; 96361; 96374; 96375; 96376; 99285; J1630; J1885; J2270; J2405; J7030; Q9967

== ENCOUNTER → 2023-04-07 07:52 | Outpatient (BNVA) | payer OTHER, SELFPAY | PROVIDERS: PCP Family Medicine; Visit Provider Family Medicine | DX: K92.2 Gastrointestinal hemorrhage, unspecified (principal); Z72.51 High risk heterosexual behavior; R04.2 Hemoptysis; F12.20 Cannabis dependence, uncomplicated; R06.02 Shortness of breath | CPT/HCPCS: 80053; 80061; 82728; 83550; 83690; 83721; 84439; 84443; 85025; 87806 ==

== ENCOUNTER → 2023-04-07 08:44 | Outpatient (BNVA) | payer OTHER, SELFPAY | PROVIDERS: PCP Family Medicine; Visit Provider Family Medicine | DX: Z72.51 High risk heterosexual behavior (principal); R10.11 Right upper quadrant pain; K92.2 Gastrointestinal hemorrhage, unspecified; R04.2 Hemoptysis; R06.02 Shortness of breath | CPT/HCPCS: 71046 ==

== ENCOUNTER 2023-04-09 06:03 | Emergency (ER) | payer OTHER, SELFPAY ==
[2023-04-09 06:09] VITALS: BP 191/135; PULSE 78; RESP 18; TEMP 36.8; O2SAT 98; BMI 21.7
--- NOTE | 2023-04-09 06:12 | CT_ITS ---
WS: [id number] Exam: CT abdomen pelvis w con* [id number] Date/Time of Exam: 04/09/2023 6:40 AM Reason For Exam: abd pain DLP: 774.[address] scans at [facility] use at least one of these dose optimization techniques: automated e xposure control; mA and/or kV adjustment per patient size (includes targeted exams where dose is matc hed to clinical indication); or iterative reconstruction. Lower lung zones are clear. Mild plaque atelectasis in the right middle lobe. Small hiatal hernia. Th e liver, spleen and remainder of the stomach are unremarkable. Normal-appearing gallbladder. The panc reas is not enlarged. The abdominal aorta is normal in caliber. Normal adrenal glands. The IVC is pat ent. No lymphadenopathy identified. The kidneys function and drain normally. No renal obstruction debbie ntified. Small bowel loops are normal in caliber. Normal appendix visualized. No free air or free fl uid in the abdomen or pelvis. No lymphadenopathy or mass in the pelvis. Urinary bladder is intact. Un remarkable prostate gland and seminal vesicles. No pelvic or inguinal lymphadenopathy. Mild wall thic kening of the rectosigmoid colon. The remaining large bowel is unremarkable. Bony structures are unre markable. Small fat filled periumbilical hernia. CT/CT abdomen pelvis w con* [id number] IMPRESSION: 1. Mild wall thickening of the rectosigmoid colon that may represent colitis. 2. No mass, lymphadenopathy or acute process in the abdomen or pelvis. 3. Small hiatal hernia. Other minor findings as above.
[2023-04-09 06:19] VITALS: RESP 18
[2023-04-09] MEDS: ondansetron 2 mg/ML SDV 2 mL 4 MG IVP (06:19)
[2023-04-09] MEDS: HYDROmorphone 1 mg/mL INJ 1 mL IVP (06:19)
[2023-04-09] MEDS: sodium chloride 0.9% 1,000 ML 999 ML IV (06:19)
[2023-04-09] MEDS: iohexol 350 mg/mL 500 mL Btl (per mL) IV (06:51)
[2023-04-09 06:53] LABS: Basophils % 0.5 %; Eosinophils # 0.1 10^3/uL (0.0-0.8); Eosinophils % 1.5 %; Lymphocytes # 1.7 10^3/uL (0.8-4.8); Lymphocytes % 22.5 %; Mean Corpuscular HGB Conc 34.1 g/dL (30.0-36.0); Mean Corpuscular Hemoglobin 29.4 pg (28.0-34.0); Mean Corpuscular Volume 86.3 fl (80-94); Mean Platelet Volume 8.9 fL (7.4-10.4); Monocytes # 0.6 10^3/uL (0.2-0.9); Monocytes % 8.5 %; Neutrophils % 66.6 %; Nucleated Red Blood Cells % 0 %; Platelet Count 219 10^3/cmm (130-400); Red Cell Distribution Width 11.9 % (12.1-15.1); White Blood Count 7.4 10^3/uL (4.0-10.0)
--- NOTE | 2023-04-09 06:54 | W.ED.NAVMDI ---
HPI - Nausea/Vomiting/Diarrhea General: Chief complaint: Nausea/Vomiting/Diarrhea Stated complaint: ULQ abd pain, blood in stool Time Seen by Provider: 04/09/23 06:06 Source: patient Mode of arrival: ambulatory Limitations: no limitations History of Present Illness: 33-year-old male who states that over the last week has been having increased abdominal pain states diffuse nature is cramping worse in the left upper side he had a history of pancreatitis he states he had vomiting along with diarrhea as well. He states he had some slight streaks of blood in his stool he said that its been going on for weeks no large amount of stool no black stools. Denies any fevers denies any worsening improving factors. Associated nausea: Yes Associated symtoms: Reports nausea; Denies chest pain or headache(s) Review of Systems Const: Denies: fever(s) or chills ENMT: Denies: throat pain or dental pain Card: Denies: chest pain Resp: Denies: dyspnea GI: Reports: abdominal pain, nausea, vomiting and diarrhea Musc: Denies: neck pain or back pain Skin/Breast: Denies: rash Neuro: Denies: headache(s) PFSH ED PFSH: Medical History Pancreatitis Surgical History History of colonoscopy with polypectomy History of tonsillectomy Family History (Updated 04/07/23 @ 08:01 by Radha Knox LPN) Grandmother Cancer leukemia, heart, lung-Maternal Other Bleeding disorder CAD (coronary artery disease) Clotting disorder Dementia Diabetes Hyperlipidemia Hypertension Lung disease Psychiatric illness Stroke Denies family history of Chronic kidney disease (CKD) Anesthesia complication Social History Smoking and tobacco status: former smoker Quit status (tobacco): has quit using tobacco Alcohol intake: never Substance/Drug Use: current Substance/Drug use frequency: daily Lives independently: Yes Marital status: Single Number of children: 2 Current occupational status: employed 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 Agree to transfusion: Yes Physical Exam Const: COMMON NORMALS: patient oriented x3 HENMT: COMMON NORMALS: normocephalic and atraumatic HEAD & SCALP: normocephalic and atraumatic Eye: COMMON NORMALS: Equal, round and reactive pupils present and EOMs intact bilaterally PUPIL: Yes Equal, round and reactive pupils present Neck/C-Spine: COMMON NORMALS: full ROM and supple Chest: COMMONS NORMALS: normal inspection of the chest and normal palpation of entire chest wall Resp: COMMON NORMALS: normal respiratory effort, No retractions, No use of accessory muscles and clear to auscultation bilaterally AUSCULTATION: clear to auscultation bilaterally Cardio: COMMON NORMALS: regular rate, regular rhythm and No murmurs present (Cardio) RATE: regular rate RHYTHM: regular rhythm GI: COMMON NORMALS: Normal to inspection, nondistended, normoactive bowel sounds present, Soft to palpation, non-tender and no masses PALPATION: Yes Soft to palpation Extremity: COMMON NORMALS: normal to inspection and full ROM Neuro: COMMON NORMALS: patient oriented x3, moves all extremities and no focal motor deficits Psych: COMMON NORMALS: mental status grossly normal, Normal thought process present and cooperative THOUGHT PROCESS: Normal thought process present Skin: COMMON NORMALS: no rashes or lesions noted and no wounds GENERAL SKIN EXAM: no rashes or lesions noted Course Vital Signs: Vital signs: Vital Signs Temperature 98.3 F 04/09/23 06:09 Pulse Rate 68 04/09/23 09:02 Respiratory Rate 16 04/09/23 09:02 Blood Pressure 119/99 04/09/23 09:02 Pulse Oximetry 98 04/09/23 09:02 Oxygen Delivery Me thod Room Air 04/09/23 06:09 MDM - Nausea/Vomiting/Diarrhea Medical Decision Making Patient presents with abdominal pain along with some vomiting diarrhea he has had some slight blood in his stool he has no signs of large amount of GI bleeding his hemoglobin here is 15 CT does show colitis we will get him pain meds for home along with Cipro Flagyl and follow-up with GI. Medical Records I reviewed the patient's medical records. Lab Data I reviewed the patient's lab results. 04/09/23 06:33 04/09/23 06:33 Radiology Impressions Abdomen/Pelvis CT 04/09/23 06:12 IMPRESSION: 1. Mild wall thickening of the rectosigmoid colon that may represent colitis. 2. No mass, lymphadenopathy or acute process in the abdomen or pelvis. 3. Small hiatal hernia. Other minor findings as above. Laboratory Results WBC 7.4 10^3/uL (4.0-10.0) 04/09/23 06:33 RBC 5.10 10^6/uL (4.1-5.3) 04/09/23 06:33 Hgb 15.0 g/dL (11.7-16.6) 04/09/23 06:33 Hct 44.0 % (42.0-52.0) 04/09/23 06:33 MCV 86.3 fl (80-94) 04/09/23 06:33 MCH 29.4 pg (28.0-34.0) 04/09/23 06:33 MCHC 34.1 g/dL (30.0-36.0) 04/09/23 06:33 RDW 11.9 % (12.1-15.1) L 04/09/23 06:33 Plt Count 219 10^3/cmm (130-400) 04/09/23 06:33 MPV 8.9 fL (7.4-10.4) 04/09/23 06:33 Neut % (Auto) 66.6 % 04/09/23 06:33 Lymph % (Auto) 22.5 % 04/09/23 06:33 [place] % (Auto) 8.5 % 04/09/23 06:33 Eos % (Auto) 1.5 % 04/09/23 06:33 Baso % (Auto) 0.5 % 04/09/23 06:33 Neut # (Auto) 4.90 10^3/uL (1.8-7.7) 04/09/23 06:33 Lymph # (Auto) 1.7 10^3/uL (0.8-4.8) 04/09/23 06:33 [place] # (Auto) 0.6 10^3/uL (0.2-0.9) 04/09/23 06:33 Eos # (Auto) 0.1 10^3/uL (0.0-0.8) 04/09/23 06:33 Baso # (Auto) 0.0 10^3/uL (0.0-0.1) 04/09/23 06:33 Nucleated RBC % (auto) 0 % 04/09/23 06:33 Nucleated RBCs # 0.0 /100WBC 04/09/23 06:33 Sodium 139 mmol/L (136-145) 04/09/23 06:33 Potassium 3.6 mmol/L (3.5-5.1) 04/09/23 06:33 Chloride 104 mmol/L (98-107) 04/09/23 06:33 Carbon Dioxide 23 mmol/L (22-29) 04/09/23 06:33 Anion Gap 15.6 (5-19) 04/09/23 06:33 BUN 9 mg/dL (6-20) 04/09/23 06:33 Creatinine 0.8 mg/dL (0.7-1.2) 04/09/23 06:33 GFR Calculation 112.8 mL/min (90-130) 04/09/23 06:33 Glucose 106 mg/dL (65-115) 04/09/23 06:33 Calculated Osmolality 287 mOsm/kg (285-295) 04/09/23 06:33 Calcium 9.0 mg/dL (8.5-10.5) 04/09/23 06:33 Total Bilirubin 0.6 mg/dL (0.15-1.2) 04/09/23 06:33 AST 8 U/L (0-40) 04/09/23 06:33 ALT 21 U/L (0-41) 04/09/23 06:33 Alkaline Phosphatase 80 U/L (40-130) 04/09/23 06:33 Total Protein 7.7 g/dL (6.6-8.7) 04/09/23 06:33 Albumin 4.6 g/dL (3.5-5.2) 04/09/23 06:33 Globulin 3.1 g/dL (1.3-4.6) 04/09/23 06:33 Lipase 24 U/L (13-60) 04/09/23 06:33 Urine Color Light yellow (Yellow) 04/09/23 07:43 Urine Appearance Clear (CLEAR) 04/09/23 07:43 Urine pH 7 (5-7) 04/09/23 07:43 Ur Specific [place] 1.010 (1.005-1.030) 04/09/23 07:43 Urine Protein Neg (Negative) 04/09/23 07:43 Urine Glucose (UA) Norm (Normal) 04/09/23 07:43 Urine Ketones Negative (Negative) 04/09/23 07:43 Urine Blood Neg (Negative) 04/09/23 07:43 Urine Nitrate Negative (Negative) 04/09/23 07:43 Urine Bilirubin Neg (Negative) 04/09/23 07:43 Urine Urobilinogen Norm mg/dL (Negative) 04/09/23 07:43 Ur Leukocyte Esterase Negative (Negative) 04/09/23 07:43 Discharge Plan Discharge Patient Disposition: Home Clinical Impression: Colitis Condition: Stable Prescriptions: New hydrocodone-acetaminophen 5-325 mg tablet 1 tab PO Q6H PRN (Reason: pain) Qty: 14 0RF ondansetron 4 mg tablet,disintegrating 4 mg PO Q6H PRN (Reason: nausea and vomiting) Qty: 14 0RF Cipro 500 mg tablet 500 mg PO BID Qty: 14 0RF metronidazole 500 mg tablet 500 mg PO Q8H 7 Days Qty: 21 0RF No Action ibuprofen 200 mg capsule 400 mg PO Q6H PRN acetaminophen [Tylenol] 325 mg capsule 650 mg PO QID PRN diphenhydramine HCl [Allergy (diphenhydramine)] 25 mg capsule 25 mg PO TID PRN sucralfate [Carafate] 1 gram tablet 1 g PO BID 42 Days Qty: 84 0RF pantoprazole [Protonix] 40 mg tablet,delayed release (DR/EC) 40 mg PO BID 42 Days Qty: 84 0RF ondansetron 4 mg tablet,disintegrating 4 mg PO Q8H PRN (Reason: nausea and vomiting) Qty: 120 0RF Discharge Orders: Discharge ED (Routine); Ordered 04/09/23 Ordered By: Carlos Gallegos Referrals: Jonny Mittal DO [Physician] - 1-3 days Lyle Moctezuma MD [Primary Care Provider] - Discharge Diet: Advance as tolerated Discharge Activity: Resume usual activity Patient Instructions: Colitis (ED), Opioid Safety Coding Level of Care Code ED 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
[2023-04-09 07:00] VITALS: BP 125/88; PULSE 94; RESP 18; O2SAT 96
[2023-04-09 07:10] LABS: Alanine Aminotransferase 21 U/L (0-41); Albumin Level 4.6 g/dL (3.5-5.2); Alkaline Phosphatase 80 U/L (40-130); Anion Gap 15.6 (5-19); Aspartate Amino Transferase 8 U/L (0-40); Blood Urea Nitrogen 9 mg/dL (6-20); Carbon Dioxide 23 mmol/L (22-29); Chloride 104 mmol/L (98-107); Globulin 3.1 g/dL (1.3-4.6); Glomerular Filtration Rate 112.8 mL/min (90-130); Glucose 106 mg/dL (65-115); Lipase 24 U/L (13-60); Osmolality Calculated 287 mOsm/kg (285-295); Potassium 3.6 mmol/L (3.5-5.1); Sodium 139 mmol/L (136-145); Total Bilirubin 0.6 mg/dL (0.15-1.2); Total Protein 7.7 g/dL (6.6-8.7)
[2023-04-09 07:53] LABS: Add Urine Microscopic? NO; Charge for UA Resulting for Rev
[2023-04-09 07:56] LABS: Bilirubin Urine Neg (Negative); Blood Urine Neg (Negative); Glucose Urine UA Norm (Normal); Ketones Urine Negative (Negative); Leukocyte Esterase Urine Negative (Negative); Nitrate Urine Negative (Negative); Protein Urine Neg (Negative); Urine Appearance Clear (CLEAR); Urine Color Light yellow (Yellow); Urobilinogen Urine Norm (Negative); pH Urine 7 (5-7)
[2023-04-09 08:00] VITALS: PULSE 62; RESP 18; O2SAT 98
[2023-04-09 08:50] VITALS: BP 129/98; PULSE 66; RESP 18; O2SAT 98
[2023-04-09 09:02] VITALS: BP 119/99; PULSE 68; RESP 16; O2SAT 98
--- NOTE | 2023-04-09 09:52 | DCPLANNER ---
Addendum entered by Cristal Carrasco 04/09/23 14:12: vitamin manager received the following message from the general surgery clinic regarding follow up appointment: Patient has [facility], please refer elsewhere vitamin manager called patient at phone number [phone] - unable to speak with patient a voicemail was left for patient to return case management coordinator phone call. Original Note: vitamin manager had message to schedule a follow up appointment for patient with general surgery. vitamin manager sent patients information to the front office staff at general surgery. Patients information will be printed and reviewed. Clinic will call patient with appointment information.
== END 2023-04-09 09:04 | disposition home or self-care (01) ==
PROVIDERS: Emergency Provider Emergency Medicine; PCP Family Medicine
DX: K52.9 Noninfective gastroenteritis and colitis, unspecified (principal); Z87.891 Personal history of nicotine dependence
CPT/HCPCS: 36415; 74177; 80053; 81003; 83690; 85025; 96361; 96374; 96375; 99285; J1170; J2405; J7030; Q9967

== ENCOUNTER 2023-04-20 21:50 | Emergency (ER) | payer OTHER, SELFPAY ==
[2023-04-20 21:51] VITALS: BMI 27.1
[2023-04-20 21:53] VITALS: BP 139/94; PULSE 95; RESP 16; TEMP 37; O2SAT 95
--- NOTE | 2023-04-20 21:53 | XRR_ITS ---
PROCEDURE INFORMATION: Exam: XR Chest Exam date and time: 04/20/2023 10:01 PM Age: 33 years old Clinical indication: Chest pressure; Patient HX: C/O chest pain; Additional info: Cp TECHNIQUE: Imaging protocol: Radiologic exam of the chest. Views: 1 view. COMPARISON: CR XR chest 2V* [id number] 04/07/2023 8:53 AM FINDINGS: Lungs: Unremarkable. No consolidation. Pleural spaces: Unremarkable. No pleural effusion. No pneumothorax. Heart/Mediastinum: Unremarkable. No cardiomegaly. Bones/joints: Unremarkable. XR/XR chest 1V portable [id number] IMPRESSION: No acute findings.
--- NOTE | 2023-04-20 21:59 | ECG_ITS ---
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 Measurements Intervals [place] Rate: 94 P: 45 [place]: 140 QRS: 4 QRSD: 91 T: 10 QT: 325 QTc: 408 Interpretive Statements SINUS RHYTHM NONSPECIFIC T-WAVE ABNORMALITY Compared to ECG 12/04/2022 16:59:10 T-wave abnormality now present Electronically Signed On 04-21-2023 16:33:23 CDT by Evans Rivero M.D. [id number]
[2023-04-20 22:02] VITALS: O2SAT 96
[2023-04-20] MEDS: ketorolac 30 mg/mL INJ IVP (22:08)
--- NOTE | 2023-04-20 22:14 | ED_ITS ---
HPI - Chest Pain General: Chief Complaint: Chest Pain Stated Complaint: CP Time Seen by Provider: 04/20/23 21:52 Source: patient and EMS Mode of arrival: EMS Limitations: no limitations History of Present Illness: 33-year-old male states he started having some chest pain as a sharp pain in the right side of his chest going up his neck. He states that he is given nitro by EMS his pain is now gone but he has a headache from the nitro. He had some mild dyspnea denies any fever denies any cough he denies any worsening improving factors. Associated symptoms: Deny abdominal pain, dyspnea, fever(s), nausea or vomiting Review of Systems Const: Denies: fever(s), chills, body aches or change in appetite ENMT: Reports: throat pain Card: Denies: chest pain Resp: Denies: dyspnea GI: Denies: abdominal pain, nausea, vomiting or diarrhea : Denies: dysuria Musc: Denies: neck pain or back pain Skin/Breast: Denies: rash Neuro: Denies: headache(s) Psych: Denies: depression Tanvir/Lymph: Denies: easy bruising All/Imm: Denies: urticaria PFSH ED PFSH: Medical History Pancreatitis Surgical History History of colonoscopy with polypectomy History of tonsillectomy Family History Grandmother Cancer leukemia, heart, lung-Maternal Other Bleeding disorder CAD (coronary artery disease) Clotting disorder Dementia Diabetes Hyperlipidemia Hypertension Lung disease Psychiatric illness Stroke Denies family history of Chronic kidney disease (CKD) Anesthesia complication Social History Smoking and tobacco status: former smoker Quit status (tobacco): has quit using tobacco Alcohol intake: never Substance/Drug Use: current Substance/Drug use frequency: daily Lives independently: Yes Marital status: Single Number of children: 2 Current occupational status: employed 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 Agree to transfusion: Yes Physical Exam Const: COMMON NORMALS: no acute distress, patient oriented x3 and healthy appearing HENMT: COMMON NORMALS: normocephalic and atraumatic HEAD & SCALP: normocephalic and atraumatic Eye: COMMON NORMALS: Equal, round and reactive pupils present and EOMs intact bilaterally PUPIL: Yes Equal, round and reactive pupils present Neck/C-Spine: COMMON NORMALS: full ROM and supple Chest: COMMONS NORMALS: normal inspection of the chest and normal palpation of entire chest wall Resp: COMMON NORMALS: normal respiratory effort, No retractions, No use of accessory muscles and clear to auscultation bilaterally AUSCULTATION: clear to auscultation bilaterally Cardio: COMMON NORMALS: regular rate, regular rhythm and No murmurs present (Cardio) RATE: regular rate RHYTHM: regular rhythm GI: COMMON NORMALS: Normal to inspection, nondistended, normoactive bowel sounds present, Soft to palpation, non-tender and no masses PALPATION: Yes Soft to palpation Extremity: COMMON NORMALS: normal to inspection and full ROM Neuro: COMMON NORMALS: patient oriented x3, moves all extremities and no focal motor deficits Psych: COMMON NORMALS: mental status grossly normal, Normal thought process present and cooperative THOUGHT PROCESS: Normal thought process present Skin: COMMON NORMALS: no rashes or lesions noted and no wounds GENERAL SKIN EXAM: no rashes or lesions noted Course Vital Signs: Vital signs: Vital Signs Temperature 98.6 F 04/20/23 21:53 Pulse Rate 89 04/20/23 22:23 Respiratory Rate 16 04/20/23 21:53 Blood Pressure 122/84 04/20/23 22:23 Pulse Oximetry 95 04/20/23 22:23 Oxygen Delivery Me thod Room Air 04/20/23 22:23 MDM - Chest Pain Medical Decision Making Patient presents here with chest pains atypical in nature his troponin here is normal blood works all normal EKG and x-ray are normal no signs of pulmonary embolism or dissection he feels improved after Toradol he is stable for discharge she is to follow-up with PCP and return if worsening. Medical Records I reviewed the patient's medical records. Lab Data I reviewed the patient's lab results. 04/20/23 21:31 04/20/23 21:31 Radiology Impressions Chest X-Ray 04/20/23 21:53 IMPRESSION: No acute findings. Laboratory Results WBC 6.9 10^3/uL (4.0-10.0) 04/20/23 21:31 RBC 5.25 10^6/uL (4.1-5.3) 04/20/23 21: Hgb 15.7 g/dL (11.7-16.6) 04/20/23 21: Hct 45.9 % (42.0-52.0) 04/20/23 21: MCV 87.4 fl (80-94) 04/20/23 21: MCH 29.9 pg (28.0-34.0) 04/20/23 21: MCHC 34.2 g/dL (30.0-36.0) 04/20/23 21: RDW 11.9 % (12.1-15.1) L 04/20/23: Plt Count 213 10^3/cmm (130-400) 04/20/23 21: MPV 9.7 fL (7.4-10.4) 04/20/23 21: Neut % (Auto) 78.6 % 04/20/23 21: Lymph % (Auto) 11.1 % 04/20/23 21: [place] % (Auto) 7.7 % 04/20/23 21: Eos % (Auto) 1.9 % 04/20/23 21: Baso % (Auto) 0.3 % 04/20/23 21: Neut # (Auto) 5.39 10^3/uL (1.8-7.7) 04/20/23 21: Lymph # (Auto) 0.8 10^3/uL (0.8-4.8) 04/20/23 21: [place] # (Auto) 0.5 10^3/uL (0.2-0.9) 04/20/23 21: Eos # (Auto) 0.1 10^3/uL (0.0-0.8) 04/20/23: Baso # (Auto) 0.0 10^3/uL (0.0-0.1) 04/20/23 21: Nucleated RBC % (auto) 0 % 04/20/23: Nucleated RBCs # 0.0 /100WBC 04/20/23 21: Sodium 138 mmol/L (136-145) 04/20/23 21: Potassium 3.8 mmol/L (3.5-5.1) 04/20/23 21:31 Chloride 99 mmol/L (98-107) 04/20/23 21:31 Carbon Dioxide 24 mmol/L (22-29) 04/20/23 21:31 Anion Gap 18.8 (5-19) 04/20/23 21:31 BUN 10 mg/dL (6-20) 04/20/23 21:31 Creatinine 0.8 mg/dL (0.7-1.2) 04/20/23 21:31 GFR Calculation 112.8 mL/min (90-130) 04/20/23 21:31 Glucose 98 mg/dL (65-115) 04/20/23 21:31 Calculated Osmolality 285 mOsm/kg (285-295) 04/20/23 21:31 Calcium 10.0 mg/dL (8.5-10.5) 04/20/23 21:31 Total Bilirubin 0.4 mg/dL (0.15-1.2) 04/20/23 21:31 AST 8 U/L (0-40) 04/20/23 21:31 ALT 26 U/L (0-41) 04/20/23 21:31 Alkaline Phosphatase 105 U/L (40-130) 04/20/23 21:31 Troponin T Baseline 6 ng/L (0-15) 04/20/23 21:31 Total Protein 8.0 g/dL (6.6-8.7) 04/20/23 21:31 Albumin 5.0 g/dL (3.5-5.2) 04/20/23 21:31 Globulin 3.0 g/dL (1.3-4.6) 04/20/23 21:31 Lipase 31 U/L (13-60) 04/20/23 21:31 SARS-CoV-2 Ag (Rapid) negative (Negative) 04/20/23 22:03 EKG Data EKG 1: I personally reviewed and interpreted this EKG as follows: EKG interpretation date: 04/20/23 EKG interpretation time: 21:59 Interpretation: NSR HR [address] OR T WAVE ABNORMALIIES QRS 91 QTC 377 Discharge Plan Discharge Patient Disposition: Home Clinical Impression: Chest pain Condition: Stable Prescriptions: No Action acetaminophen [Tylenol] 325 mg capsule 650 mg PO QID PRN diphenhydramine HCl [Allergy (diphenhydramine)] 25 mg capsule 25 mg PO TID PRN sucralfate [Carafate] 1 gram tablet 1 g PO BID 42 Days Qty: 84 0RF pantoprazole [Protonix] 40 mg tablet,delayed release (DR/EC) 40 mg PO BID 42 Days Qty: 84 0RF hydrocodone-acetaminophen 5-325 mg tablet 1 tab PO Q6H PRN (Reason: pain) Qty: 14 0RF ondansetron 4 mg tablet,disintegrating 4 mg PO Q6H PRN (Reason: nausea and vomiting) Qty: 14 0RF Cipro 500 mg tablet 500 mg PO BID Qty: 14 0RF Discharge Orders: Discharge ED (Routine); Ordered 04/20/23 Ordered By: Carlos Gallegos Referrals: Lyle Moctezuma MD [Primary Care Provider] - 1-3 days Discharge Diet: Advance as tolerated Discharge Activity: Resume usual activity Patient Instructions: Chest Pain (ED) Coding Level of Care Code ED 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
[2023-04-20 22:22] LABS: Basophils % 0.3 %; Eosinophils # 0.1 10^3/uL (0.0-0.8); Eosinophils % 1.9 %; Hematocrit 45.9 % (42.0-52.0); Hemoglobin 15.7 g/dL (11.7-16.6); Lymphocytes # 0.8 10^3/uL (0.8-4.8); Lymphocytes % 11.1 %; Mean Corpuscular HGB Conc 34.2 g/dL (30.0-36.0); Mean Corpuscular Hemoglobin 29.9 pg (28.0-34.0); Mean Corpuscular Volume 87.4 fl (80-94); Mean Platelet Volume 9.7 fL (7.4-10.4); Monocytes # 0.5 10^3/uL (0.2-0.9); Monocytes % 7.7 %; Neutrophils # 5.39 10^3/uL (1.8-7.7); Neutrophils % 78.6 %; Nucleated Red Blood Cells % 0 %; Platelet Count 213 10^3/cmm (130-400); Red Blood Count 5.25 10^6/uL (4.1-5.3); Red Cell Distribution Width 11.9 % (12.1-15.1); White Blood Count 6.9 10^3/uL (4.0-10.0)
[2023-04-20 22:23] VITALS: BP 122/84; PULSE 89; O2SAT 95
[2023-04-20 22:27] LABS: SARS Covid-2 Antigen negative (Negative)
[2023-04-20 22:28] LABS: Troponin(5th) Baseline 6 ng/L (0-15)
[2023-04-20 22:29] LABS: Alanine Aminotransferase 26 U/L (0-41); Alkaline Phosphatase 105 U/L (40-130); Anion Gap 18.8 (5-19); Aspartate Amino Transferase 8 U/L (0-40); Blood Urea Nitrogen 10 mg/dL (6-20); Carbon Dioxide 24 mmol/L (22-29); Chloride 99 mmol/L (98-107); Glomerular Filtration Rate 112.8 mL/min (90-130); Glucose 98 mg/dL (65-115); Lipase 31 U/L (13-60); Osmolality Calculated 285 mOsm/kg (285-295); Potassium 3.8 mmol/L (3.5-5.1); Sodium 138 mmol/L (136-145); Total Bilirubin 0.4 mg/dL (0.15-1.2)
[2023-04-20 23:21] VITALS: BP 122/79; PULSE 80; RESP 16; O2SAT 96
== END 2023-04-20 23:28 | disposition home or self-care (01) ==
PROVIDERS: Emergency Provider Emergency Medicine; PCP Family Medicine
DX: R07.9 Chest pain, unspecified (principal); Z20.822 Contact with and (suspected) exposure to COVID-19; Z87.891 Personal history of nicotine dependence
CPT/HCPCS: 71045; 80053; 83690; 84484; 85025; 87426; 93005; 96374; 99285; J1885

== ENCOUNTER 2023-06-07 17:08 | Emergency (ER) | payer OTHER, SELFPAY ==
[2023-06-07 17:11] VITALS: BP 123/84; PULSE 88; RESP 18; TEMP 37; O2SAT 93; BMI 27.1
--- NOTE | 2023-06-07 17:18 | ECG_ITS ---
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 Measurements Intervals [place] Rate: 92 P: 54 [place]: 124 QRS: 18 QRSD: 105 T: 16 QT: 347 QTc: 430 Interpretive Statements SINUS RHYTHM NONSPECIFIC T-WAVE ABNORMALITY Compared to ECG 04/20/2023 21:59:15 No significant changes Electronically Signed On 06-08-2023 8:29:22 CDT by Prieto Klein M.D. [email or web address]
--- NOTE | 2023-06-07 17:19 | W.ED.DIZZY ---
HPI - Dizziness General: Chief Complaint: Dizziness Stated Complaint: heat exposure Time Seen by Provider: 06/07/23 17:18 History of Present Illness: HPI Narrative: 33-year-old male patient reports that he was working outside for the last 2 to 3 hours started becoming lightheaded and nauseous to the point he felt like he was going to pass out. Patient waved down a motorist who then contacted EMS. EMS reported that patient was not sweating on arrival but was responsive. Patient was given IV fluids and transported to the emergency department. Patient has a history of colon polyps but otherwise no chronic medical conditions. Patient reports feeling poorly. Patient appears nontoxic. Patient appears in no pain. Associated symptoms: Reports nausea; Denies chest pain Review of Systems Const: Denies: fever(s) Card: Denies: chest pain Resp: Denies: dyspnea GI: Reports: nausea Musc: Denies: neck pain or back pain Neuro: Reports: dizziness [facility] ED PFSH: Medical History Pancreatitis Surgical History History of colonoscopy with polypectomy History of tonsillectomy Family History Grandmother Cancer leukemia, heart, lung-Maternal Other Bleeding disorder CAD (coronary artery disease) Clotting disorder Dementia Diabetes Hyperlipidemia Hypertension Lung disease Psychiatric illness Stroke Denies family history of Chronic kidney disease (CKD) Anesthesia complication Social History Smoking and tobacco status: former smoker Quit status (tobacco): has quit using tobacco Alcohol intake: never Substance/Drug Use: current Substance/Drug use frequency: daily Lives independently: Yes Marital status: Single Number of children: 2 Current occupational status: employed 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 Agree to transfusion: Yes Physical Exam Const: COMMON NORMALS: alert HENMT: COMMON NORMALS: normocephalic and TM's normal bilaterally HEAD & SCALP: normocephalic FACE & SINUS: normal facial exam TYMPANIC MEMBRANE: TM's normal bilaterally Neck/C-Spine: COMMON NORMALS: full ROM Resp: COMMON NORMALS: normal respiratory effort and clear to auscultation bilaterally AUSCULTATION: clear to auscultation bilaterally Cardio: COMMON NORMALS: regular rate and regular rhythm RATE: regular rate RHYTHM: regular rhythm GI: AUSCULTATION: Yes normoactive bowel sounds Extremity: COMMON NORMALS: normal to inspection Neuro: SENSORIUM/ORIENTATION: Yes alert Skin: COMMON NORMALS: turgor normal GENERAL SKIN EXAM: turgor normal Course Vital Signs: Vital signs: Vital Signs Temperature 98.6 F 06/07/23 17:11 Pulse Rate 81 06/07/23 18:46 Respiratory Rate 18 06/07/23 18:46 Blood Pressure 120/77 06/07/23 17:59 Pulse Oximetry 99 06/07/23 18:46 Oxygen Delivery Me thod Room Air 06/07/23 17:59 MDM - Dizziness Medical Decision Making 33-year-old male patient was brought in by EMS for concerns of dizziness and nausea with 1 episode of emesis after working outside for 2 to 3 hours in the heat. Patient appears nontoxic. Abdomen soft nontender. Skin is warm and dry. Patient reports being overheated to the point that he felt like he was going to pass out. Vital signs are normal. Differential diagnosis includes but not limited to heat exhaustion, electrolyte abnormality, dehydration. EKG was unremarkable. CBC and CMP was unremarkable. Patient was infused with approximately 2 L of crystalloid solution. Patient was more alert and reported feeling well and was discharged home. Reviewed need for monitoring for heat exhaustion and avoiding the midday heat. Patient reported understanding. Lab Data 06/07/23 17:15 06/07/23 17:15 Laboratory Results WBC 11.0 10^3/uL (4.0-10.0) H 06/07/23 17:15 RBC 5.12 10^6/uL (4.1-5.3) 06/07/23 17:15 Hgb 15.1 g/dL (11.7-16.6) 06/07/23 17:15 Hct 45.1 % (42.0-52.0) 06/07/23 17:15 MCV 88.1 fl (80-94) 06/07/23 17:15 MCH 29.5 pg (28.0-34.0) 06/07/23 17:15 MCHC 33.5 g/dL (30.0-36.0) 06/07/23 17:15 RDW 12.2 % (12.1-15.1) 06/07/23 17:15 Plt Count 279 10^3/cmm (130-400) 06/07/23 17:15 MPV 9.2 fL (7.4-10.4) 06/07/23 17:15 Neut % (Auto) 39.0 % 06/07/23 17:15 Lymph % (Auto) 50.9 % 06/07/23 17:15 [place] % (Auto) 7.2 % 06/07/23 17:15 Eos % (Auto) 2.1 % 06/07/23 17:15 Baso % (Auto) 0.4 % 06/07/23 17:15 Neut # (Auto) 4.29 10^3/uL (1.8-7.7) 06/07/23 17:15 Lymph # (Auto) 5.6 10^3/uL (0.8-4.8) H 06/07/23 17:15 [place] # (Auto) 0.8 10^3/uL (0.2-0.9) 06/07/23 17:15 Eos # (Auto) 0.2 10^3/uL (0.0-0.8) 06/07/23 17:15 Baso # (Auto) 0.0 10^3/uL (0.0-0.1) 06/07/23 17:15 Nucleated RBC % (auto) 0 % 06/07/23 17:15 Nucleated RBCs # 0.0 /100WBC 06/07/23 17:15 Sodium 141 mmol/L (136-145) 06/07/23 17:15 Potassium 3.8 mmol/L (3.5-5.1) 06/07/23 17:15 Chloride 103 mmol/L (98-107) 06/07/23 17:15 Carbon Dioxide 22 mmol/L (22-29) 06/07/23 17:15 Anion Gap 19.8 (5-19) H 06/07/23 17:15 BUN 8 mg/dL (6-20) 06/07/23 17:15 Creatinine 0.9 mg/dL (0.7-1.2) 06/07/23 17:15 GFR Calculation 98.4 mL/min (90-130) 06/07/23 17:15 Glucose 91 mg/dL (65-115) 06/07/23 17:15 Calculated Osmolality 290 mOsm/kg (285-295) 06/07/23 17:15 Calcium 9.7 mg/dL (8.5-10.5) 06/07/23 17:15 Total Bilirubin 0.4 mg/dL (0.15-1.2) 06/07/23 17:15 AST 7 U/L (0-40) 06/07/23 17:15 ALT 12 U/L (0-41) 06/07/23 17:15 Alkaline Phosphatase 80 U/L (40-130) 06/07/23 17:15 Creatine Kinase 121 U/L (39-308) 06/07/23 17:15 Total Protein 7.8 g/dL (6.6-8.7) 06/07/23 17:15 Albumin 4.7 g/dL (3.5-5.2) 06/07/23 17:15 Globulin 3.1 g/dL (1.3-4.6) 06/07/23 17:15 Urine Color Yellow (Yellow) 06/07/23 18:00 Urine Appearance Clear (CLEAR) 06/07/23 18:00 Urine pH 5 (5-7) 06/07/23 18:00 Ur Specific [place] 1.015 (1.005-1.030) 06/07/23 18:00 Urine Protein Neg (Negative) 06/07/23 18:00 Urine Glucose (UA) Norm (Normal) 06/07/23 18:00 Urine Ketones Negative (Negative) 06/07/23 18:00 Urine Blood Neg (Negative) 06/07/23 18:00 Urine Nitrate Negative (Negative) 06/07/23 18:00 Urine Bilirubin Neg (Negative) 06/07/23 18:00 Urine Urobilinogen Norm mg/dL (Negative) 06/07/23 18:00 Ur Leukocyte Esterase Negative (Negative) 06/07/23 18:00 EKG Data EKG 1: EKG interpretation date: 06/07/23 EKG interpretation time: 17:28 Prior EKG tracings: not available for review Interpretation: EKG shows sinus rhythm with a regular rate at [address] elevation is noted. No ectopy is noted. No prior exam was available for comparison. Computer generated interpretation: Sinus rhythm, nonspecific T wave abnormality, borderline EKG, unconfirmed report. Discharge Plan Discharge Patient Disposition: Home Clinical Impression: Heat exhaustion Qualifiers: Encounter type: initial encounter Qualified Code(s): T67.5XXA - Heat exhaustion, unspecified, initial encounter Condition: Stable Prescriptions: No Action acetaminophen [Tylenol] 325 mg capsule 650 mg PO QID PRN diphenhydramine HCl [Allergy (diphenhydramine)] 25 mg capsule 25 mg PO TID PRN sucralfate [Carafate] 1 gram tablet 1 g PO BID 42 Days Qty: 84 0RF pantoprazole [Protonix] 40 mg tablet,delayed release (DR/EC) 40 mg PO BID 42 Days Qty: 84 0RF hydrocodone-acetaminophen 5-325 mg tablet 1 tab PO Q6H PRN (Reason: pain) Qty: 14 0RF ondansetron 4 mg tablet,disintegrating 4 mg PO Q6H PRN (Reason: nausea and vomiting) Qty: 14 0RF Cipro 500 mg tablet 500 mg PO BID Qty: 14 0RF Discharge Orders: Discharge ED (Routine); Ordered 06/07/23 Ordered By: Rolo Lancaster Referrals: Lyle Moctezuma MD [Primary Care Provider] - Discharge Diet: Usual diet Discharge Activity: Increase activity as tolerated Patient Instructions: Heat Exhaustion (ED) Activity Restrictions/Additional Instructions: Home and rest. Drink plenty of water and fluids. Avoid the extreme heat of the day between 10:00 and 4:00. Try to stay out of the heat for the next 3 to 4 days. Then increase activity as tolerated. Use electrolyte solution when out in the heat and sweating. Drink plenty of water. Follow-up with primary care for further instructions. Return to ED for new concerns. 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
[2023-06-07] MEDS: ondansetron 2 mg/ML SDV 2 mL 4 MG IVP (17:26)
[2023-06-07] MEDS: sodium chloride 0.9% 1,000 ML 999 ML IV (17:26)
[2023-06-07 17:29] LABS: Basophils % 0.4 %; Eosinophils # 0.2 10^3/uL (0.0-0.8); Eosinophils % 2.1 %; Hematocrit 45.1 % (42.0-52.0); Hemoglobin 15.1 g/dL (11.7-16.6); Lymphocytes # 5.6 10^3/uL (0.8-4.8); Lymphocytes % 50.9 %; Mean Corpuscular HGB Conc 33.5 g/dL (30.0-36.0); Mean Corpuscular Hemoglobin 29.5 pg (28.0-34.0); Mean Corpuscular Volume 88.1 fl (80-94); Mean Platelet Volume 9.2 fL (7.4-10.4); Monocytes # 0.8 10^3/uL (0.2-0.9); Monocytes % 7.2 %; Neutrophils # 4.29 10^3/uL (1.8-7.7); Nucleated Red Blood Cells % 0 %; Platelet Count 279 10^3/cmm (130-400); Red Blood Count 5.12 10^6/uL (4.1-5.3); Red Cell Distribution Width 12.2 % (12.1-15.1)
[2023-06-07 17:49] LABS: Alanine Aminotransferase 12 U/L (0-41); Albumin Level 4.7 g/dL (3.5-5.2); Alkaline Phosphatase 80 U/L (40-130); Anion Gap 19.8 (5-19); Aspartate Amino Transferase 7 U/L (0-40); Blood Urea Nitrogen 8 mg/dL (6-20); Calcium 9.7 mg/dL (8.5-10.5); Carbon Dioxide 22 mmol/L (22-29); Chloride 103 mmol/L (98-107); Creatine Phosphokinase 121 U/L (39-308); Globulin 3.1 g/dL (1.3-4.6); Glomerular Filtration Rate 98.4 mL/min (90-130); Glucose 91 mg/dL (65-115); Osmolality Calculated 290 mOsm/kg (285-295); Potassium 3.8 mmol/L (3.5-5.1); Sodium 141 mmol/L (136-145); Total Bilirubin 0.4 mg/dL (0.15-1.2); Total Protein 7.8 g/dL (6.6-8.7)
[2023-06-07 17:57] LABS: Slide Review Slide Review Perform
[2023-06-07 17:59] VITALS: BP 120/77; PULSE 87; RESP 18; O2SAT 96
[2023-06-07 18:28] LABS: Add Urine Microscopic? NO; Bilirubin Urine Neg (Negative); Blood Urine Neg (Negative); Glucose Urine UA Norm (Normal); Ketones Urine Negative (Negative); Leukocyte Esterase Urine Negative (Negative); Nitrate Urine Negative (Negative); Protein Urine Neg (Negative); Specific Gravity, Urine 1.015 (1.005-1.030); Urine Appearance Clear (CLEAR); Urine Color Yellow (Yellow); Urobilinogen Urine Norm (Negative); pH Urine 5 (5-7)
[2023-06-07 18:29] LABS: Charge for UA Resulting for Rev
[2023-06-07 18:46] VITALS: PULSE 81; RESP 18; O2SAT 99
== END 2023-06-07 18:46 | disposition home or self-care (01) ==
PROVIDERS: Emergency Provider Nurse Practitioner Family; PCP Family Medicine
DX: T67.5XXA Heat exhaustion, unspecified, initial encounter (principal); X30.XXXA Exposure to excessive natural heat, initial encounter; Z87.891 Personal history of nicotine dependence
CPT/HCPCS: 80053; 81003; 82550; 85025; 93005; 96374; 99284; J2405; J7030

== ENCOUNTER 2024-06-04 07:44 | Emergency (ER) | payer SELFPAY ==
[2024-06-04 08:19] VITALS: BP 147/115; PULSE 85; RESP 18; TEMP 36.8; O2SAT 99; BMI 27.1
[2024-06-04 08:24] VITALS: BP 147/115; PULSE 89; O2SAT 98
--- NOTE | 2024-06-04 08:25 | ECG_ITS ---
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 Measurements Intervals [place] Rate: 78 P: 34 [place]: 138 QRS: 4 QRSD: 92 T: -3 QT: 376 QTc: 429 Interpretive Statements SINUS RHYTHM WITH SINUS ARRHYTHMIA Compared to ECG 06/07/2023 17:22:01 T-wave abnormality no longer present Electronically Signed On 06-04-2024 16:24:36 CDT by Elisa Green M.D. [email or web address]
--- NOTE | 2024-06-04 08:26 | XRR_ITS ---
PROCEDURE INFORMATION: Exam: XR Chest Exam date and time: 06/04/2024 8:58 AM Age: 34 years old Clinical indication: Cough and dyspnea; Additional info: Dyspnea/cough TECHNIQUE: Imaging protocol: Radiologic exam of the chest. Views: 1 view. COMPARISON: CR XR chest 1V portable [id number] 04/20/2023 10:01 PM FINDINGS: Lungs: Lung volumes are somewhat decreased from the current study which may be due to poor inspiratory effort. No infiltrates overt CHF detected. Pleural spaces: Unremarkable. No pleural effusion. No pneumothorax. Heart/Mediastinum: Unremarkable. No cardiomegaly. Bones/joints: Unremarkable. XR/XR chest 1V portable [id number] IMPRESSION: Decreased lung volumes otherwise negative chest.
--- NOTE | 2024-06-04 08:28 | W.ED.NAVMDI ---
HPI - Nausea/Vomiting/Diarrhea General: Chief complaint: Abdominal Pain Stated complaint: n/vomiting up blood, abd pain Time Seen by Provider: 06/04/24 07:48 History of Present Illness: 34-year-old male presents emergency room with complaint of hematemesis and some coffee-ground emesis. With sudden onset of nausea and vomiting this morning around 4 AM. He is complaining left upper quadrant pain. Is a remote history of pancreatitis in the past. Patient complaining of severe cramping abdominal pain. Denies use of any alcohol he does use marijuana products. No diarrhea no hematochezia or melena no dysuria urgency or frequency Associated nausea: Yes Associated symtoms: Reports nausea; Denies chest pain or dysuria Review of Systems Const: Denies: fever(s) or chills Card: Denies: chest pain Resp: Denies: dyspnea GI: Reports: nausea, vomiting and hematemesis (Small streaks); Denies: abdominal pain : Denies: dysuria, urinary frequency or urinary urgency Musc: Denies: neck pain or back pain Skin/Breast: Denies: rash PFSH ED PFSH: Medical History Pancreatitis Surgical History History of tonsillectomy History of colonoscopy with polypectomy Family History Grandmother Cancer leukemia, heart, lung-Maternal Other Bleeding disorder CAD (coronary artery disease) Clotting disorder Dementia Diabetes Hyperlipidemia Hypertension Lung disease Psychiatric illness Stroke Denies family history of Chronic kidney disease (CKD) Anesthesia complication Social History Smoking and tobacco/nicotine status: former use of tobacco/nicotine Quit status (tobacco/nicotine): has quit using Alcohol intake: never Substance/Drug Use: current Substance/Drug use frequency: daily Lives independently: Yes Marital status: Single Number of children: 2 Current occupational status: employed 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 Agree to transfusion: Yes Physical Exam Const: COMMON NORMALS: no acute distress GENERAL APPEARANCE: cooperative and comfortable ORIENTATION/CONSCIOUSNESS: Yes awake, Yes oriented to person, Yes oriented to place and Yes oriented to time HENMT: COMMON NORMALS: normocephalic, atraumatic and hearing grossly normal bilaterally HEAD & SCALP: normocephalic and atraumatic Resp: COMMON NORMALS: normal respiratory effort, No retractions, No use of accessory muscles and clear to auscultation bilaterally AUSCULTATION: clear to auscultation bilaterally Cardio: COMMON NORMALS: regular rate, regular rhythm and No murmurs present (Cardio) RATE: regular rate RHYTHM: regular rhythm GI: COMMON NORMALS: Soft to palpation and No hepatosplenomegaly present AUSCULTATION: Yes normoactive bowel sounds PALPATION: Yes Soft to palpation, No Tenderness to palpation present (GI), No Guarding due to palpation present (GI) and Yes No hepatosplenomegaly present Extremity: COMMON NORMALS: normal to inspection, capillary refill normal, no clubbing, cyanosis or edema, no calf tenderness and no pedal edema Neuro: SENSORIUM/ORIENTATION: Yes oriented to person, Yes oriented to place and Yes oriented to time Skin: COMMON NORMALS: no rashes or lesions noted GENERAL SKIN EXAM: no rashes or lesions noted Course Vital Signs: Vital signs: Vital Signs Temperature 98.3 F 06/04/24 08:19 Pulse Rate 97 06/04/24 08:54 Respiratory Rate 18 06/04/24 08:19 Blood Pressure 147/115 06/04/24 08:24 Pulse Oximetry 95 06/04/24 08:54 Oxygen Delivery Me thod Room Air 06/04/24 08:19 MDM - Nausea/Vomiting/Diarrhea Medical Decision Making Nausea vomiting improved with Ativan and Haldol. Patient does use medical marijuana fairly regularly. BUN and hemoglobin are within normal ranges completely has an active GI bleed he has no further bleeding since arriving here. We did try to Gastroccult but the only thing in his emesis bag was actually just saliva. He has not had any bright red blood per rectum. Will discharge patient home follow-up with his primary care doctor next week encouraged him to decrease use of THC products. Continue on pantoprazole 40 mg twice daily. Use buccal Ativan and Zyprexa as needed for persistent nausea vomiting. Medical Records I reviewed the patient's medical records. Lab Data I reviewed the patient's lab results. 06/04/24 08:37 06/04/24 08:37 Radiology Impressions Chest X-Ray 06/04/24 08:26 IMPRESSION: Decreased lung volumes otherwise negative chest. Laboratory Results WBC 7.20 10^3/uL (3.29-11.43) 06/04/24 08:37 RBC 5.32 10^6/uL (3.85-5.65) 06/04/24 08:37 Hgb 16.30 g/dL (11.27-16.99) 06/04/24 08:37 Hct 46.5 % (37-53) 06/04/24 08:37 MCV 87.4 fl (82-101) 06/04/24 08:37 MCH 30.6 pg (27-33) 06/04/24 08:37 MCHC 35.1 g/dL (30-55) 06/04/24 08:37 RDW 12.2 % (12.1-15.1) 06/04/24 08:37 Plt Count 257 10^3/cmm (157-399) 06/04/24 08:37 MPV 9.1 fL (7.4-10.4) 06/04/24 08:37 Neut % (Auto) 75.6 % 06/04/24 08:37 Lymph % (Auto) 18.2 % 06/04/24 08:37 [place] % (Auto) 4.9 % 06/04/24 08:37 Eos % (Auto) 0.7 % 06/04/24 08:37 Baso % (Auto) 0.3 % 06/04/24 08:37 Neut # (Auto) 5.45 10^3/uL (1.8-7.7) 06/04/24 08:37 Lymph # (Auto) 1.3 10^3/uL (0.8-4.8) 06/04/24 08:37 [place] # (Auto) 0.4 10^3/uL (0.2-0.9) 06/04/24 08:37 Eos # (Auto) 0.1 10^3/uL (0.0-0.8) 06/04/24 08:37 Baso # (Auto) 0.0 10^3/uL (0.0-0.1) 06/04/24 08:37 Nucleated RBC % (auto) 0 % 06/04/24 08:37 Nucleated RBCs # 0.0 /100WBC 06/04/24 08:37 Sodium 142 mmol/L (136-145) 06/04/24 08:37 Potassium 3.9 mmol/L (3.5-5.1) 06/04/24 08:37 Chloride 103 mmol/L (98-107) 06/04/24 08:37 Carbon Dioxide 23 mmol/L (22-29) 06/04/24 08:37 Anion Gap 19.9 (5-19) H 06/04/24 08:37 BUN 10 mg/dL (6-20) 06/04/24 08:37 Creatinine 0.8 mg/dL (0.7-1.2) 06/04/24 08:37 GFR Calculation 112.0 mL/min (90-130) 06/04/24 08:37 Glucose 110 mg/dL (65-115) 06/04/24 08:37 Calculated Osmolality 294 mOsm/kg (285-295) 06/04/24 08:37 Calcium 9.8 mg/dL (8.5-10.5) 06/04/24 08:37 Total Bilirubin 0.7 mg/dL (0.15-1.2) 06/04/24 08:37 AST 10 U/L (0-40) 06/04/24 08:37 ALT 28 U/L (0-41) 06/04/24 08:37 Alkaline Phosphatase 91 U/L (40-130) 06/04/24 08:37 Total Protein 8.8 g/dL (6.6-8.7) H 06/04/24 08:37 Albumin 5.0 g/dL (3.5-5.2) 06/04/24 08:37 Globulin 3.8 g/dL (1.3-4.6) 06/04/24 08:37 Lipase 23 U/L (13-60) 06/04/24 08:37 Urine Color Yellow (Yellow) 06/04/24 10:03 Urine Appearance Clear (CLEAR) 06/04/24 10:03 Urine pH 6 (5-7) 06/04/24 10:03 Ur Specific [place] 1.015 (1.005-1.030) 06/04/24 10:03 Urine Protein Trace (Negative) 06/04/24 10:03 Urine Glucose (UA) Norm (Normal) 06/04/24 10:03 Urine Ketones 1+ (Negative) H 06/04/24 10:03 Urine Blood Neg (Negative) 06/04/24 10:03 Urine Nitrate Negative (Negative) 06/04/24 10:03 Urine Bilirubin Neg (Negative) 06/04/24 10:03 Urine Urobilinogen Norm mg/dL (Negative) 06/04/24 10:03 Ur Leukocyte Esterase Negative (Negative) 06/04/24 10:03 Urine RBC None /hpf (0-2) 06/04/24 10:03 Urine WBC 0-4 /hpf (0-5) H 06/04/24 10:03 Ur Squamous Epith Cells None /hpf (0-5) 06/04/24 10:03 Amorphous Sediment Not Reportable 06/04/24 10:03 Urine Bacteria 1+ /hpf (NONE) H 06/04/24 10:03 Urine Mucus 2+ /hpf 06/04/24 10:03 All radiology interpretation(s) finalized by discharge Discharge Plan Discharge Patient Disposition: Home Clinical Impression: Cannabinoid hyperemesis syndrome Condition: Stable Prescriptions: New Ativan 2 mg tablet 2 mg buccal Q6H PRN (Reason: nausea and vomiting) Qty: 14 0RF Zyprexa Zydis 10 mg tablet,disintegrating 10 mg PO Q6H PRN (Reason: nausea and vomiting) Qty: 14 0RF No Action acetaminophen [Tylenol] 325 mg capsule 650 mg PO QID PRN diphenhydramine HCl [Allergy (diphenhydramine)] 25 mg capsule 25 mg PO TID PRN sucralfate [Carafate] 1 gram tablet 1 g PO BID 42 Days Qty: 84 0RF pantoprazole [Protonix] 40 mg tablet,delayed release (DR/EC) 40 mg PO BID 42 Days Qty: 84 0RF hydrocodone-acetaminophen 5-325 mg tablet 1 tab PO Q6H PRN (Reason: pain) Qty: 14 0RF ondansetron 4 mg tablet,disintegrating 4 mg PO Q6H PRN (Reason: nausea and vomiting) Qty: 14 0RF Cipro 500 mg tablet 500 mg PO BID Qty: 14 0RF Discharge Orders: Discharge ED (Routine); Ordered 06/04/24 Ordered By: Brandyn Sharma Discharge Diet: Clear Liquid Discharge Activity: Increase activity as tolerated Patient Instructions: Opioid Safety, Pain Management Activity Restrictions/Additional Instructions: Thank you for choosing [facility] for your healthcare needs today. It is very important that you follow up as instructed or that you return to the Emergency Department should you have concerns or if your condition changes or worsens in any way. 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
[2024-06-04] MEDS: ondansetron 2 mg/ML SDV 2 mL 4 MG IVP (08:43)
[2024-06-04 08:46] LABS: Basophils % 0.3 %; Eosinophils # 0.1 10^3/uL (0.0-0.8); Eosinophils % 0.7 %; Hematocrit 46.5 % (37-53); Lymphocytes # 1.3 10^3/uL (0.8-4.8); Lymphocytes % 18.2 %; Mean Corpuscular HGB Conc 35.1 g/dL (30-55); Mean Corpuscular Hemoglobin 30.6 pg (27-33); Mean Corpuscular Volume 87.4 fl (82-101); Mean Platelet Volume 9.1 fL (7.4-10.4); Monocytes # 0.4 10^3/uL (0.2-0.9); Monocytes % 4.9 %; Neutrophils # 5.45 10^3/uL (1.8-7.7); Neutrophils % 75.6 %; Nucleated Red Blood Cells % 0 %; Platelet Count 257 10^3/cmm (157-399); Red Blood Count 5.32 10^6/uL (3.85-5.65); Red Cell Distribution Width 12.2 % (12.1-15.1)
[2024-06-04] MEDS: haloperidol inj 5 mg/mL INJ 1 mL 2.5 MG IVP (08:48)
[2024-06-04] MEDS: pantoprazole 40 mg SDV 80 MG IVP (08:48)
[2024-06-04] MEDS: LORazepam 2 mg/mL INJ 1 mL 1 MG IVP ×2 (08:49→11:37)
[2024-06-04 08:54] VITALS: PULSE 97; O2SAT 95
[2024-06-04 09:08] LABS: Alanine Aminotransferase 28 U/L (0-41); Alkaline Phosphatase 91 U/L (40-130); Anion Gap 19.9 (5-19); Aspartate Amino Transferase 10 U/L (0-40); Blood Urea Nitrogen 10 mg/dL (6-20); Calcium 9.8 mg/dL (8.5-10.5); Carbon Dioxide 23 mmol/L (22-29); Chloride 103 mmol/L (98-107); Creatinine Clr Calc Pharmacy 155.3385; Globulin 3.8 g/dL (1.3-4.6); Glucose 110 mg/dL (65-115); Lipase 23 U/L (13-60); Osmolality Calculated 294 mOsm/kg (285-295); Potassium 3.9 mmol/L (3.5-5.1); Sodium 142 mmol/L (136-145); Total Bilirubin 0.7 mg/dL (0.15-1.2); Total Protein 8.8 g/dL (6.6-8.7)
[2024-06-04 10:28] LABS: Add Urine Culture? No; Add Urine Microscopic? YES; Bacteria Urine 1+ /hpf; Bilirubin Urine Neg (Negative); Blood Urine Neg (Negative); Glucose Urine UA Norm (Normal); Ketones Urine 1+ (Negative); Leukocyte Esterase Urine Negative (Negative); Mucus Urine 2+ /hpf; Nitrate Urine Negative (Negative); Protein Urine Trace (Negative); Specific Gravity, Urine 1.015 (1.005-1.030); Urine Appearance Clear (CLEAR); Urine Color Yellow (Yellow); Urobilinogen Urine Norm (Negative); WBC Urine 0-4 /hpf (0-5); pH Urine 6 (5-7)
== END 2024-06-04 11:43 | disposition home or self-care (01) ==
PROVIDERS: Emergency Provider Family Medicine
DX: R11.2 Nausea with vomiting, unspecified (principal); F12.90 Cannabis use, unspecified, uncomplicated; Z87.891 Personal history of nicotine dependence
CPT/HCPCS: 71045; 80053; 81001; 83690; 85025; 93005; 96374; 96375; 96376; 99285; J1630; J2060; J2405; J2470

== ENCOUNTER 2024-10-20 23:11 | Emergency (ER) | payer SELFPAY ==
[2024-10-20 23:37] VITALS: BP 149/91; PULSE 119; RESP 16; TEMP 38.3; O2SAT 98
[2024-10-21] VITALS (16 sets, daily range): BP systolic 104–137; BP diastolic 72–99; PULSE 69–103; RESP 18–22; O2SAT 94–98
[2024-10-21 00:47] LABS: Basophils % 0.2 %; Eosinophils % 0.2 %; Hematocrit 45.1 % (37-53); Lymphocytes # 0.2 10^3/uL (0.8-4.8); Lymphocytes % 4.4 %; Mean Corpuscular HGB Conc 34.1 g/dL (30-55); Mean Corpuscular Hemoglobin 29.8 pg (27-33); Mean Corpuscular Volume 87.2 fl (82-101); Mean Platelet Volume 8.9 fL (7.4-10.4); Monocytes # 0.4 10^3/uL (0.2-0.9); Monocytes % 7.9 %; Neutrophils # 4.68 10^3/uL (1.8-7.7); Neutrophils % 86.6 %; Nucleated Red Blood Cells % 0 %; Platelet Count 195 10^3/cmm (157-399); Red Blood Count 5.17 10^6/uL (3.85-5.65); Red Cell Distribution Width 11.8 % (12.1-15.1); White Blood Count 5.41 10^3/uL (3.29-11.43)
--- NOTE | 2024-10-21 00:54 | ED_ITS ---
HPI - Back Pain/Injury 2 General: Chief Complaint: Back Pain/Injury Stated Complaint: Back Pain Time Seen by Provider: 10/21/24 00:47 History of Present Illness: Patient presents to the ER with low back pain nausea vomiting and fever tachycardia. Started this morning. Patient said he had a headache last night did not feel good when he woke up this morning this and all the symptoms started. Related Data Home Medications Medication Instructions Recorded Confirmed acetaminophen 325 mg capsule 650 mg PO QID PRN 04/07/23 04/16/23 (Tylenol) diphenhydramine HCl 25 mg capsule 25 mg PO TID PRN 04/07/23 04/16/23 (Allergy (diphenhydramine)) Previous Rx's Medication Instructions Recorded pantoprazole 40 mg tablet,delayed 40 mg PO BID 6 weeks #84 tabs 04/07/23 release (Protonix) sucralfate 1 gram tablet (Carafate) 1 g PO BID 6 weeks #84 tabs 04/07/23 ciprofloxacin HCl 500 mg tablet 500 mg PO BID #14 tabs 04/09/23 (Cipro) hydrocodone 5 mg-acetaminophen 325 1 tab PO Q6H PRN pain #14 tabs 04/09/23 mg tablet ondansetron 4 mg disintegrating 4 mg PO Q6H PRN nausea and 04/09/23 tablet vomiting #14 tabs lorazepam 2 mg tablet (Ativan) 2 mg buccal Q6H PRN nausea and 06/04/24 vomiting #14 tabs olanzapine 10 mg disintegrating 10 mg PO Q6H PRN nausea and 06/04/24 tablet (Zyprexa Zydis) vomiting #14 tabs Allergies Allergy/AdvReac Type Severity Reaction Status Date / Time Androgenic Anabolic Steroid Allergy ADR-Nausea Verified 09/07/24 13:57 iodine Allergy Unknown Verified 06/07/23 17:16 Penicillins Allergy Unknown Verified 06/07/23 17:16 Review of Systems 2 General: Reports: 10 or more systems reviewed and unremarkable except in HPI and below PFSH ED 2 PFSH: Medical History Pancreatitis Surgical History History of tonsillectomy History of colonoscopy with polypectomy Family History Grandmother Cancer leukemia, heart, lung-Maternal Other Bleeding disorder CAD (coronary artery disease) Clotting disorder Dementia Diabetes Hyperlipidemia Hypertension Lung disease Psychiatric illness Stroke Denies family history of Chronic kidney disease (CKD) Anesthesia complication Social History Smoking and tobacco/nicotine status: former use of tobacco/nicotine Quit status (tobacco/nicotine): has quit using Alcohol intake: never Substance/Drug Use: current Substance/Drug use frequency: daily Lives independently: Yes Marital status: Single Number of children: 2 Current occupational status: employed 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 Agree to transfusion: Yes Physical Exam 2 Const: COMMON NORMALS: no acute distress, average body habitus, patient oriented x3, no limitations, healthy appearing, alert and well nourished HENMT: COMMON NORMALS: normocephalic, atraumatic, hearing grossly normal bilaterally, external ears normal, Normal external nose present and moist oral mucous membranes HEAD & SCALP: normocephalic and atraumatic NOSE: Normal external nose present EXTERNAL EAR: Yes external ears normal Neck/C-Spine: COMMON NORMALS: no JVD Chest: COMMONS NORMALS: normal inspection of the chest and normal palpation of entire chest wall Resp: COMMON NORMALS: normal respiratory effort, No retractions, No use of accessory muscles and clear to auscultation bilaterally AUSCULTATION: clear to auscultation bilaterally Cardio: COMMON NORMALS: no JVD, regular rate, regular rhythm, S1 normal heart sound present, S2 normal heart sound present, No gallops present (Cardio), No clicks present (Cardio) and No murmurs present (Cardio) RATE: regular rate RHYTHM: regular rhythm HEART SOUNDS: S1 normal heart sound present and S2 normal heart sound present GI: COMMON NORMALS: Normal to inspection, nondistended, normoactive bowel sounds present, Soft to palpation, non-tender, No hepatosplenomegaly present and no masses PALPATION: Yes Soft to palpation and Yes No hepatosplenomegaly present Neuro: COMMON NORMALS: patient oriented x3 SENSORIUM/ORIENTATION: Yes alert Course 2 Vital Signs: Vital signs: Vital Signs Temperature 100.9 F H 10/20/24 23:37 Pulse Rate 75 10/21/24 05:34 Respiratory Rate 20 H 10/21/24 05:34 Blood Pressure 122/94 10/21/24 05:34 Pulse Oximetry 94 10/21/24 05:34 Oxygen Delivery Me thod Room Air 10/21/24 04:10 MDM - Back Pain/Injury Medical Decision Making work reviewed which is essentially all normal, abdomen pelvis CT scan again fairly benign. Patient was given 1 L normal saline bolus, Tylenol 1 g, Toradol 30 mg, Zofran 4 mg, patient be discharged home. Medical Records I reviewed the patient's medical records. Labs I reviewed the patient's lab results. Lab 10/21/24 00:36 10/21/24 00:36 Radiology Impressions Abdomen/Pelvis CT 10/21/24 03:08 IMPRESSION: 1. No hydronephrosis of either kidney. No visible renal or ureteral calculus. No significant perinephric fluid, see above discussion. 2. Normal appendix. 3. No visible gallstones by CT. 4. No free air or significant bowel distention. 5. Mild left lower lung opacities could represent atelectasis and/or pneumonitis. 6. Small hiatal hernia. Possibly some thickening of the lower esophagus, see above discussion. 7. Other findings discussed above. Laboratory Results WBC 5.41 10^3/uL (3.29-11.43) 10/21/24 00:36 RBC 5.17 10^6/uL (3.85-5.65) 10/21/24 00:36 Hgb 15.40 g/dL (11.27-16.99) 10/21/24 00:36 Hct 45.1 % (37-53) 10/21/24 00:36 MCV 87.2 fl (82-101) 10/21/24 00:36 MCH 29.8 pg (27-33) 10/21/24 00:36 MCHC 34.1 g/dL (30-55) 10/21/24 00:36 RDW 11.8 % (12.1-15.1) L 10/21/24 00:36 Plt Count 195 10^3/cmm (157-399) 10/21/24 00:36 MPV 8.9 fL (7.4-10.4) 10/21/24 00:36 Neut % (Auto) 86.6 % 10/21/24 00:36 Lymph % (Auto) 4.4 % 10/21/24 00:36 [place] % (Auto) 7.9 % 10/21/24 00:36 Eos % (Auto) 0.2 % 10/21/24 00:36 Baso % (Auto) 0.2 % 10/21/24 00:36 Neut # (Auto) 4.68 10^3/uL (1.8-7.7) 10/21/24 00:36 Lymph # (Auto) 0.2 10^3/uL (0.8-4.8) L 10/21/24 00:36 [place] # (Auto) 0.4 10^3/uL (0.2-0.9) 10/21/24 00:36 Eos # (Auto) 0.0 10^3/uL (0.0-0.8) 10/21/24 00:36 Baso # (Auto) 0.0 10^3/uL (0.0-0.1) 10/21/24 00:36 Nucleated RBC % (auto) 0 % 10/21/24 00:36 Nucleated RBCs # 0.0 /100WBC 10/21/24 00:36 Sodium 137 mmol/L (136-145) 10/21/24 00:36 Potassium 3.6 mmol/L (3.5-5.1) 10/21/24 00:36 Chloride 100 mmol/L (98-107) 10/21/24 00:36 Carbon Dioxide 22 mmol/L (22-29) 10/21/24 00:36 Anion Gap 18.6 (5-19) 10/21/24 00:36 BUN 11 mg/dL (6-20) 10/21/24 00:36 Creatinine 0.9 mg/dL (0.7-1.2) 10/21/24 00:36 GFR Calculation 97.8 mL/min (90-130) 10/21/24 00:36 Glucose 119 mg/dL (65-115) H 10/21/24 00:36 Calculated Osmolality 285 mOsm/kg (285-295) 10/21/24 00:36 Calcium 10.3 mg/dL (8.5-10.5) 10/21/24 00:36 Total Bilirubin 0.4 mg/dL (0.15-1.2) 10/21/24 00:36 AST 8 U/L (0-40) 10/21/24 00:36 ALT 24 U/L (0-41) 10/21/24 00:36 Alkaline Phosphatase 83 U/L (40-130) 10/21/24 00:36 Total Protein 8.5 g/dL (6.6-8.7) 10/21/24 00:36 Albumin 5.0 g/dL (3.5-5.2) 10/21/24 00:36 Globulin 3.5 g/dL (1.3-4.6) 10/21/24 00:36 Lipase 23 U/L (13-60) 10/21/24 00:36 Urine Color Yellow (Yellow) 10/21/24 03:00 Urine Appearance Clear (CLEAR) 10/21/24 03:00 Urine pH 8.5 (5-7) A 10/21/24 03:00 Ur Specific [place] 1.019 (1.005-1.030) 10/21/24 03:00 Urine Protein 1+ (Negative) A 10/21/24 03:00 Urine Glucose (UA) Negative (Normal) 10/21/24 03:00 Urine Ketones 1+ (Negative) H 10/21/24 03:00 Urine Blood Negative (Negative) 10/21/24 03:00 Urine Nitrate Negative (Negative) 10/21/24 03:00 Urine Bilirubin Negative (Negative) 10/21/24 03:00 Urine Urobilinogen 1.0 mg/dL (Negative) 10/21/24 03:00 Ur Leukocyte Esterase Negative (Negative) 10/21/24 03:00 Urine RBC 0-2 /hpf (0-2) 10/21/24 03:00 Urine WBC 11-20 /hpf (0-5) H 10/21/24 03:00 Ur Squamous Epith Cells 0-5 /hpf (0-5) 10/21/24 03:00 Amorphous Sediment Not Reportable 10/21/24 03:00 Urine Bacteria None seen /hpf (NONE) 10/21/24 03:00 Hyaline Casts 1.21 /lpf 10/21/24 03:00 All radiology interpretation(s) finalized by discharge Discharge Plan Discharge Patient Disposition: Home Clinical Impression: Fever Qualifiers: Fever type: unspecified Qualified Code(s): R50.9 - Fever, unspecified Low back pain Qualifiers: Chronicity: acute Back pain laterality: unspecified Sciatica presence: without sciatica Qualified Code(s): M54.50 - Low back pain, unspecified Condition: Stable Prescriptions: No Action acetaminophen [Tylenol] 325 mg capsule 650 mg PO QID PRN diphenhydramine HCl [Allergy (diphenhydramine)] 25 mg capsule 25 mg PO TID PRN sucralfate [Carafate] 1 gram tablet 1 g PO BID 42 Days Qty: 84 0RF pantoprazole [Protonix] 40 mg tablet,delayed release (DR/EC) 40 mg PO BID 42 Days Qty: 84 0RF Ativan 2 mg tablet 2 mg buccal Q6H PRN (Reason: nausea and vomiting) Qty: 14 0RF Zyprexa Zydis 10 mg tablet,disintegrating 10 mg PO Q6H PRN (Reason: nausea and vomiting) Qty: 14 0RF hydrocodone-acetaminophen 5-325 mg tablet 1 tab PO Q6H PRN (Reason: pain) Qty: 14 0RF ondansetron 4 mg tablet,disintegrating 4 mg PO Q6H PRN (Reason: nausea and vomiting) Qty: 14 0RF Cipro 500 mg tablet 500 mg PO BID Qty: 14 0RF Discharge Orders: Discharge ED (Routine); Ordered 10/21/24 Ordered By: Pedro Pablo Remy Patient Instructions: Acetaminophen (By mouth), Fever - Adult, Acute Low Back Pain (ED) Activity Restrictions/Additional Instructions: Evaluation ER that included physical exam, lab work, urinalysis, abdomen pelvis CT scan with contrast all was essentially benign. It is felt he may have a viral infection. Please follow-up with your family practitioner in the next 7 days for further evaluation testing. Thank you for choosing [facility] for your healthcare needs today. Please realize that you were seen in the emergency department and that we are providing you with an emergency medical screening exam and this may not be a complete and all exclusive of all testing and/or medical workup we may need to determine your element or severity of your illness. It is very important that you follow-up as instructed with your primary care provider or specialist for the additional evaluation and to discuss your medical treatment plan. You may return to the emergency department should you have concerns or if your condition changes or worsens in any way. Coding Level of Care Code ED Physician General Internal Medicine for Eleanor Parikh
[2024-10-21 01:05] LABS: Alanine Aminotransferase 24 U/L (0-41); Alkaline Phosphatase 83 U/L (40-130); Anion Gap 18.6 (5-19); Aspartate Amino Transferase 8 U/L (0-40); Blood Urea Nitrogen 11 mg/dL (6-20); Calcium 10.3 mg/dL (8.5-10.5); Carbon Dioxide 22 mmol/L (22-29); Chloride 100 mmol/L (98-107); Creatinine Clr Calc Pharmacy 130.5193; Globulin 3.5 g/dL (1.3-4.6); Glomerular Filtration Rate 97.8 mL/min (90-130); Glucose 119 mg/dL (65-115); Osmolality Calculated 285 mOsm/kg (285-295); Potassium 3.6 mmol/L (3.5-5.1); Sodium 137 mmol/L (136-145); Total Bilirubin 0.4 mg/dL (0.15-1.2); Total Protein 8.5 g/dL (6.6-8.7)
[2024-10-21] MEDS: sodium chloride 0.9% 1,000 ML 999 ML IV (01:13)
[2024-10-21 01:14] LABS: Lipase 23 U/L (13-60)
[2024-10-21] MEDS: acetaminophen 500 mg Tablet 1000 MG PO (01:15)
[2024-10-21] MEDS: ketorolac 30 mg/mL INJ IVP (01:15)
[2024-10-21] MEDS: ondansetron 2 mg/ML SDV 2 mL 4 MG IVP (01:17)
[2024-10-21 03:06] LABS: Bilirubin Urine Negative (Negative); Blood Urine Negative (Negative); Glucose Urine UA Negative (Normal); Ketones Urine 1+ (Negative); Leukocyte Esterase Urine Negative (Negative); Nitrate Urine Negative (Negative); Protein Urine 1+ (Negative); Specific Gravity, Urine 1.019 (1.005-1.030); Urine Appearance Clear (CLEAR); Urine Color Yellow (Yellow); pH Urine 8.5 (5-7)
--- NOTE | 2024-10-21 03:08 | CTR_ITS ---
PROCEDURE INFORMATION: Exam: CT Abdomen And Pelvis Without Contrast Exam date and time: 10/21/2024 3:19 AM Age: 34 years old Clinical indication: Abdominal pain; Generalized; Additional info: Flank pain, fever, history of kidney stones TECHNIQUE: Imaging protocol: Computed tomography of the abdomen and pelvis without contrast. Radiation optimization: All CT scans at this facility use at least one of these dose optimization techniques: automated exposure control; mA and/or kV adjustment per patient size (includes targeted exams where dose is matched to clinical indication); or iterative reconstruction. COMPARISON: CT abdomen pelvis w con* [id number] 04/09/2023 6:47 AM RADIATION DOSE METRICS: Total DLP (mGy-cm): 711.89 FINDINGS: Lungs: Mild left lower lung opacities could represent atelectasis and/or pneumonitis. Please correlate clinically. No pleural fluid. Diaphragm: Small hiatal hernia. Possible mild mucosal/wall thickening involving the lower esophagus, although this could be a transient appearance. While nonspecific, the findings could represent evidence for esophagitis. Please correlate clinically. Liver: Unremarkable. Gallbladder and biliary ducts: The gallbladder is partially contracted. No visible gallstones by CT. No biliary tree dilation. Pancreas: Unremarkable. Spleen: Unremarkable. Adrenal glands: Unremarkable. Kidneys and ureters: No hydronephrosis of either kidney. No visible renal or ureteral calculus. No significant perinephric fluid. Normal appearance of the kidneys on noncontrast CT does not entirely exclude the diagnosis of acute pyelonephritis. Please correlate with clinical and laboratory evaluation. Stomach and bowel: No significant bowel distention. There are no CT findings to suggest diverticulitis. Appendix: The appendix is visualized and appears normal. Intraperitoneal space: No free intraperitoneal air, or ascites. Vasculature: No evidence for abdominal aortic aneurysm. Lymph nodes: No retroperitoneal adenopathy. Urinary bladder: No visible calculus in the urinary bladder. No definite abnormal bladder wall thickening. Reproductive: Essentially unremarkable for age. Bones/joints: No significant acute finding. Soft tissues: Very small umbilical hernia, containing only fat. CT/CT kidney stone [id number] IMPRESSION: 1. No hydronephrosis of either kidney. No visible renal or ureteral calculus. No significant perinephric fluid, see above discussion. 2. Normal appendix. 3. No visible gallstones by CT. 4. No free air or significant bowel distention. 5. Mild left lower lung opacities could represent atelectasis and/or pneumonitis. 6. Small hiatal hernia. Possibly some thickening of the lower esophagus, see above discussion. 7. Other findings discussed above.
[2024-10-21 03:10] LABS: Add Urine Microscopic? YES; Bacteria Urine None Seen /hpf; Hyaline Casts Urine 1.21 /lpf; RBC Urine 0-2 /hpf (0-2); Squamous Epithelial Cell Urine 0-5 /hpf (0-5)
== END 2024-10-21 05:49 | disposition home or self-care (01) ==
PROVIDERS: Physician Assistant; Emergency Provider Emergency Medicine
DX: R50.9 Fever, unspecified (principal); M54.50 Low back pain, unspecified; Z87.891 Personal history of nicotine dependence
CPT/HCPCS: 36415; 74176; 80053; 81001; 83690; 85025; 96361; 96374; 96375; 99285; J1885; J2405; J7030

== ENCOUNTER 2025-01-06 01:38 | Emergency (ER) | payer SELFPAY ==
[2025-01-06 01:53] LABS: Basophils % 0.2 %; Eosinophils % 0.2 %; Hematocrit 48.5 % (37-53); Lymphocytes # 2.5 10^3/uL (0.8-4.8); Lymphocytes % 27.1 %; Mean Corpuscular HGB Conc 35.7 g/dL (30-55); Mean Corpuscular Hemoglobin 29.3 pg (27-33); Mean Corpuscular Volume 82.1 fl (82-101); Mean Platelet Volume 9.6 fL (7.4-10.4); Monocytes # 0.7 10^3/uL (0.2-0.9); Monocytes % 7.8 %; Neutrophils # 5.82 10^3/uL (1.8-7.7); Neutrophils % 64.1 %; Nucleated Red Blood Cells % 0 %; Platelet Count 342 10^3/cmm (157-399); Red Blood Count 5.91 10^6/uL (3.85-5.65); Red Cell Distribution Width 11.8 % (12.1-15.1); White Blood Count 9.08 10^3/uL (3.29-11.43)
[2025-01-06 01:55] VITALS: BP 143/109; PULSE 86; RESP 16; TEMP 37.1; O2SAT 93; BMI 25.7
[2025-01-06] MEDS: prochlorperazine 10 mg/2 mL Inj IVP (02:04)
[2025-01-06] MEDS: diphenhydrAMINE 50 mg/mL SDV 1mL 25 MG IVP (02:04)
[2025-01-06] MEDS: pantoprazole 40 mg SDV 80 MG IVP (02:04)
[2025-01-06] MEDS: ondansetron 2 mg/ML SDV 2 mL 8 MG IVP (02:04)
[2025-01-06] MEDS: sodium chloride 0.9% 1,000 ML 999 ML IV (02:05)
--- NOTE | 2025-01-06 02:10 | ED_ITS ---
HPI - Nausea/Vomiting/Diarrhea 2 General: Chief complaint: Nausea/Vomiting/Diarrhea Stated complaint: N/V Blood Time Seen by Provider: 01/06/25 01:43 History of Present Illness: This is a 34-year-old male presents emergency room by ambulance intractable nausea and vomiting. He says he was seen at [facility] recently and they thought it might be related to marijuana use but he has not had any marijuana in a week. He called ambulance tonight because he has been throwing up some bright red blood he says. No focal abdominal pain. No altered mental status. No fevers. He says he has not had an appetite for about a week and then started vomiting again today. Related Data Home Medications ?Medication ?Instructions ?Recorded ?Confirmed acetaminophen 325 mg capsule 650 mg PO QID PRN 3 04/16/23 (Tylenol) diphenhydramine HCl 25 mg capsule 25 mg PO TID PRN 04/16/23 (Allergy (diphenhydramine)) Previous Rx's ?Medication ?Instructions ?Recorded pantoprazole 40 mg tablet,delayed 40 mg PO BID 6 weeks #84 tabs 04/07/23 release (Protonix) sucralfate 1 gram tablet (Carafate) 1 g PO BID 6 weeks #84 tabs 04/07/23 ciprofloxacin HCl 500 mg tablet 500 mg PO BID #14 tabs 04/09/23 (Cipro) hydrocodone 5 mg-acetaminophen 325 1 tab PO Q6H PRN pa in #14 tabs 04/09/23 mg tablet ondansetron 4 mg disintegrating 4 mg PO Q6H PRN nausea and 04/09/23 tablet vomiting #14 tabs lorazepam 2 mg tablet (Ativan) 2 mg buccal Q6H PRN nneka sea and 06/04/24 vomiting #14 tabs olanzapine 10 mg disintegrating 10 mg PO Q6H PRN nause a and 06/04/24 tablet (Zyprexa Zydis) vomiting #14 tabs ondansetron 8 mg disintegrating 8 mg PO Q6H #14 tabs 0 01/06/25 tablet promethazine 25 mg rectal 25 mg UT Q6H PRN nausea and 01/06/25 suppository vomiting #12 ea Allergies Allergy/AdvReac Type Severity Reaction Status Date / Time Androgenic Anabolic Steroid Allergy ADR-Nausea Verified 09/07/24 13:57 iodine Allergy Unknown Verified 06/07/23 17:16 Penicillins Allergy Unknown Verified 06/07/23 17:16 Review of Systems 2 Narrative: Constitutional symptoms: Negative except as documented in HPI. Skin symptoms: Negative except as documented in HPI. Eye symptoms: Negative except as documented in HPI. ENMT symptoms: Negative except as documented in HPI. Respiratory symptoms: Negative except as documented in HPI. Cardiovascular symptoms: Negative except as documented in HPI. Gastrointestinal symptoms: Negative except as documented in HPI. Genitourinary symptoms: Negative except as documented in HPI. Musculoskeletal symptoms: Negative except as documented in HPI. Neurologic symptoms: Negative except as documented in HPI. Psychiatric symptoms: Negative except as documented in HPI. Endocrine symptoms: Negative except as documented in HPI. PFSH ED 2 PFSH: Medical History Pancreatitis Surgical History History of tonsillectomy History of colonoscopy with polypectomy Family History Grandmother Cancer leukemia, heart, lung-Maternal Other Bleeding disorder CAD (coronary artery disease) Clotting disorder Dementia Diabetes Hyperlipidemia Hypertension Lung disease Psychiatric illness Stroke Denies family history of Chronic kidney disease (CKD) Anesthesia complication Social History Smoking and tobacco/nicotine status: former use of tobacco/nicotine Quit status (tobacco/nicotine): has quit using Alcohol intake: never Substance/Drug Use: current Substance/Drug use frequency: daily Lives independently: Yes Marital status: Single Number of children: 2 Current occupational status: employed 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 Skin: Warm, dry. Head: Normocephalic, atraumatic. Neck: Supple, trachea midline. Eye: Extraocular movements are intact. Ears, nose, mouth and throat: mucosa moist. Cardiovascular: Regular, Normal peripheral perfusion. Respiratory: Lungs are clear to auscultation, respirations are non-labored, breath sounds are equal, Symmetrical chest wall expansion. Gastrointestinal: Soft, Nontender, Non distended Musculoskeletal: Normal ROM, no deformity. Neurological: Alert and oriented, No focal neurological deficit observed. Psychiatric: Cooperative, appropriate mood & affect. Course 2 Vital Signs: Vital signs: Vital Signs Temperature 98.7 F 01/06/25 01:55 Pulse Rate 92 01/06/25 02:30 Respiratory Rate 20 H 01/06/25 02:30 Blood Pressure 133/94 01/06/25 02:30 Pulse Oximetry 96 01/06/25 02:30 Oxygen Delivery Me thod Room Air 01/06/25 02:30 MDM - Nausea/Vomiting/Diarrhea Medical Decision Making Medical decision making: Differential diagnosis for this patient with nausea and vomiting including but not limited to and based on the above HPI, review of systems and physical exam: Urinary tract infection. Appendicitis. Cholecystis. colitis. small bowel obstruction. crohn's flare. pancreatitis. gastritis. peptic ulcer. cyclic vomiting. Viral illness. Influenza. COVID. Orders placed to evaluate differential diagnosis based on the above differential, HPI and physical exam Lab Review: Laboratory results were reviewed and interpreted by myself the emergency room physician. No leukocytosis. No evidence of extensive GI bleeding. Hemoglobin is 17. Pain and creatinine are normal. Urinalysis is negative for infection. Drug screen is positive for marijuana. I reviewed the patient's medical record. Reexamination: Patient is now tolerating p.o. Assessment and plan: Cyclic vomiting Dehydration ? IV Protonix, IV Reglan and Benadryl, IV Zofran, IV fluids. - Discharged home - Discussed plan with patient. Answered any questions. - Evaluation and treatment of this problem were appropriate in the emergency setting. Lab Data 01/06/25 01:47 01/06/25 01:47 Laboratory Results WBC 9.08 10^3/uL (3.29-11.43) 01/06/25 01:47 RBC 5.91 10^6/uL (3.85-5.65) H 01/06/25 01:47 Hgb 17.30 g/dL (11.27-16.99) H 01/06/25 01:47 Hct 48.5 % (37-53) 01/06/25 01:47 MCV 82.1 fl (82-101) 01/06/25 01:47 MCH 29.3 pg (27-33) 01/06/25 01:47 MCHC 35.7 g/dL (30-55) 01/06/25 01:47 RDW 11.8 % (12.1-15.1) L 01/06/25 01:47 Plt Count 342 10^3/cmm (157-399) 01/06/25 01:47 MPV 9.6 fL (7.4-10.4) 01/06/25 01:47 Neut % (Auto) 64.1 % 01/06/25 01:47 Lymph % (Auto) 27.1 % 01/06/25 01:47 [place] % (Auto) 7.8 % 01/06/25 01:47 Eos % (Auto) 0.2 % 01/06/25 01:47 Baso % (Auto) 0.2 % 01/06/25 01:47 Neut # (Auto) 5.82 10^3/uL (1.8-7.7) 01/06/25 01:47 Lymph # (Auto) 2.5 10^3/uL (0.8-4.8) 01/06/25 01:47 [place] # (Auto) 0.7 10^3/uL (0.2-0.9) 01/06/25 01:47 Eos # (Auto) 0.0 10^3/uL (0.0-0.8) 01/06/25 01:47 Baso # (Auto) 0.0 10^3/uL (0.0-0.1) 01/06/25 01:47 Nucleated RBC % (auto) 0 % 01/06/25 01:47 Nucleated RBCs # 0.0 /100WBC 01/06/25 01:47 Sodium 137 mmol/L (136-145) 01/06/25 01:47 Potassium 3.3 mmol/L (3.5-5.1) L 01/06/25 01:47 Chloride 96 mmol/L (98-107) L 01/06/25 01:47 Carbon Dioxide 21 mmol/L (22-29) L 01/06/25 01:47 Anion Gap 23.3 (5-19) H 01/06/25 01:47 BUN 13 mg/dL (6-20) 01/06/25 01:47 Creatinine 1.0 mg/dL (0.7-1.2) 01/06/25 01:47 GFR Calculation 86.6 mL/min (90-130) L 01/06/25 01:47 Glucose 136 mg/dL (65-115) H 01/06/25 01:47 Calculated Osmolality 286 mOsm/kg (285-295) 01/06/25 01:47 Lactic Acid 2.0 mmol/L (0.5-2.2) 01/06/25 01:47 Calcium 10.2 mg/dL (8.5-10.5) 01/06/25 01:47 Total Bilirubin 1.3 mg/dL (0.15-1.2) H 01/06/25 01:47 AST 23 U/L (0-40) 01/06/25 01:47 ALT 76 U/L (0-41) H 01/06/25 01:47 Alkaline Phosphatase 92 U/L (40-130) 01/06/25 01:47 C-Reactive Protein 4.6 mg/L (0.0-4.9) 01/06/25 01:47 Total Protein 9.3 g/dL (6.6-8.7) H 01/06/25 01:47 Albumin 5.0 g/dL (3.5-5.2) 01/06/25 01:47 Globulin 4.3 g/dL (1.3-4.6) 01/06/25 01:47 Lipase 38 U/L (13-60) 01/06/25 01:47 Urine Color Dark yellow (Yellow) A 01/06/25 02:44 Urine Appearance Clear (CLEAR) 01/06/25 02:44 Urine pH 5.5 (5-7) 01/06/25 02:44 Ur Specific [place] 1.027 (1.005-1.030) 01/06/25 02:44 Urine Protein 2+ (Negative) A 01/06/25 02:44 Urine Glucose (UA) Negative (Normal) 01/06/25 02:44 Urine Ketones 2+ (Negative) H 01/06/25 02:44 Urine Blood Negative (Negative) 01/06/25 02:44 Urine Nitrate Negative (Negative) 01/06/25 02:44 Urine Bilirubin 2+ (Negative) H 01/06/25 02:44 Urine Urobilinogen 1.0 mg/dL (Negative) 01/06/25 02:44 Ur Leukocyte Esterase Trace (Negative) A 01/06/25 02:44 Urine RBC None /hpf (0-2) 01/06/25 02:44 Urine WBC 0-4 /hpf (0-5) H 01/06/25 02:44 Ur Squamous Epith Cells None /hpf (0-5) 01/06/25 02:44 Amorphous Sediment Not Reportable 01/06/25 02:44 Urine Bacteria None /hpf (NONE) 01/06/25 02:44 Urine Mucus 2+ /hpf 01/06/25 02:44 Urine Opiates Screen Negative ng/mL (Negative) 01/06/25 02:44 Ur Barbiturates Screen Negative ng/mL (Negative) 01/06/25 02:44 Ur Phencyclidine Scrn Negative ng/mL (Negative) 01/06/25 02:44 Ur Amphetamines Screen Negative ng/mL (Negative) 01/06/25 02:44 U Benzodiazepines Scrn Negative ng/mL (Negative) 01/06/25 02:44 Urine Cocaine Screen Negative ng/mL (Negative) 01/06/25 02:44 U Marijuana (THC) Screen Positive ng/mL (Negative) H 01/06/25 02:44 Influenza A (PCR) Negative (Negative) 01/06/25 02:00 Influenza Type B (PCR) Negative (Negative) 01/06/25 02:00 RSV (PCR) Negative (Negative) 01/06/25 02:00 SARS-CoV-2 (PCR) Negative (Negative) 01/06/25 02:00 No radiology studies performed this visit Discharge Plan Discharge Patient Disposition: Home Clinical Impression: Vomiting, Dehydration Condition: Stable Prescriptions: New promethazine 25 mg suppository 25 mg UT Q6H PRN (Reason: nausea and vomiting) Qty: 12 0RF ondansetron 8 mg tablet,disintegrating 8 mg PO Q6H Qty: 14 0RF Rx Instructions: Take 1/2-1 tab every 6 hours as needed for nausea and vomiting No Action acetaminophen [Tylenol] 325 mg capsule 650 mg PO QID PRN diphenhydramine HCl [Allergy (diphenhydramine)] 25 mg capsule 25 mg PO TID PRN sucralfate [Carafate] 1 gram tablet 1 g PO BID 42 Days Qty: 84 0RF pantoprazole [Protonix] 40 mg tablet,delayed release (DR/EC) 40 mg PO BID 42 Days Qty: 84 0RF Ativan 2 mg tablet 2 mg buccal Q6H PRN (Reason: nausea and vomiting) Qty: 14 0RF Zyprexa Zydis 10 mg tablet,disintegrating 10 mg PO Q6H PRN (Reason: nausea and vomiting) Qty: 14 0RF hydrocodone-acetaminophen 5-325 mg tablet 1 tab PO Q6H PRN (Reason: pain) Qty: 14 0RF ondansetron 4 mg tablet,disintegrating 4 mg PO Q6H PRN (Reason: nausea and vomiting) Qty: 14 0RF Cipro 500 mg tablet 500 mg PO BID Qty: 14 0RF Discharge Orders: Discharge ED (Routine); Ordered 01/06/25 Ordered By: Elisabeth Lopez Discharge Diet: Advance as tolerated Patient Instructions: Cyclic Vomiting Syndrome (ED), Opioid Safety, Pain Management Activity Restrictions/Additional Instructions: Thank you for choosing [facility] for your healthcare needs today. Please realize this is an emergency room and that we are providing you with a medical screening exam and this may not be complete and all inclusive of all the testing and or work up that you may need to determine your ailment or severity of your illness. You have been screened and evaluated and felt safe for discharge. Health conditions do change or evolve sometimes and as such it is important that you follow up with your Primary Doctor to be re checked, 3-5 days is a general good time frame for follow up. You are always welcome to return to the ED for re assessment if your symptoms are worsening or you have new concerns Print Language: [place] Coding Level of Care Code ED Industrial Paramedic for Eleanor Parikh
[2025-01-06 02:18] LABS: Sodium 137 mmol/L (136-145)
[2025-01-06 02:28] VITALS: BP 134/73; PULSE 80; RESP 18; O2SAT 94
[2025-01-06 02:28] LABS: Alanine Aminotransferase 76 U/L (0-41); Alkaline Phosphatase 92 U/L (40-130); Anion Gap 23.3 (5-19); Aspartate Amino Transferase 23 U/L (0-40); Blood Urea Nitrogen 13 mg/dL (6-20); C Reactive Protein 4.6 mg/L (0.0-4.9); Calcium 10.2 mg/dL (8.5-10.5); Carbon Dioxide 21 mmol/L (22-29); Chloride 96 mmol/L (98-107); Creatinine Clr Calc Pharmacy 121.5498; Globulin 4.3 g/dL (1.3-4.6); Glomerular Filtration Rate 86.6 mL/min (90-130); Glucose 136 mg/dL (65-115); Lipase 38 U/L (13-60); Osmolality Calculated 286 mOsm/kg (285-295); Potassium 3.3 mmol/L (3.5-5.1); Total Bilirubin 1.3 mg/dL (0.15-1.2); Total Protein 9.3 g/dL (6.6-8.7)
[2025-01-06 02:30] VITALS: BP 133/94; PULSE 92; RESP 20; O2SAT 96
[2025-01-06 02:51] LABS: Bilirubin Urine 2+ (Negative); Blood Urine Negative (Negative); Glucose Urine UA Negative (Normal); Ketones Urine 2+ (Negative); Leukocyte Esterase Urine Trace (Negative); Nitrate Urine Negative (Negative); Protein Urine 2+ (Negative); Specific Gravity, Urine 1.027 (1.005-1.030); Urine Appearance Clear (CLEAR); pH Urine 5.5 (5-7)
[2025-01-06 02:53] LABS: UA Manual Slide Review YES; Urine Color Dark Yellow (Yellow)
[2025-01-06 02:58] LABS: Add Urine Culture? No; Amphetamines Screen Urine Negative (Negative); Barbiturates Screen Urine Negative (Negative); Benzodiazepines Screen Urine Negative (Negative); Cocaine Screen Urine Negative (Negative); Mucus Urine 2+ /hpf; Opiate Screen Urine Negative (Negative); PCP Screen Urine Negative (Negative); THC Screen Urine Positive (Negative); WBC Urine 0-4 /hpf (0-5)
[2025-01-06 03:09] LABS: Influenza A NEGATIVE (Negative); Influenza B NEGATIVE (Negative); Respiratory Syncytial Virus Ce NEGATIVE (Negative); SARS-CoV-2 PCR NEGATIVE (Negative)
== END 2025-01-06 03:26 | disposition home or self-care (01) ==
PROVIDERS: Emergency Provider Emergency Medicine
DX: R11.10 Vomiting, unspecified (principal); E86.0 Dehydration; Z11.52 Encounter for screening for COVID-19; Z87.891 Personal history of nicotine dependence
CPT/HCPCS: 36415; 80053; 80306; 81001; 83605; 83690; 85025; 86140; 87637; 96361; 96374; 96375; 99284; J0780; J1200; J2405; J2470; J7030

== ENCOUNTER 2025-04-18 09:11 | Emergency (ER) | payer SELFPAY ==
--- NOTE | 2025-04-18 09:14 | ED_ITS ---
HPI - Nausea/Vomiting/Diarrhea 2 General: Chief complaint: Nausea/Vomiting/Diarrhea Stated complaint: dehydration, n/v/d Time Seen by Provider: 04/18/25 09:12 Source: patient Mode of arrival: ambulatory Limitations: no limitations History of Present Illness: Patient is a 35-year-old male presents to ED today with complaint of nausea and vomiting. Patient states he has a longstanding history of what sounds to be cyclic vomiting syndrome. He states every 2 months or so over the past 5 years he will have similar episodes where he cannot keep anything down. He describes it as an excessive stomach acid . He has been seen here through our emergency department several times for similar symptoms. He has all seen his primary care provider. They were supposed to be scheduling him for an outpatient endoscopy. Patient is a habitual marijuana user. He states he has used since the age of 14. He states he quit for a few months but symptoms did not improve. He does feel like marijuana is the only thing that helps his nausea and vomiting. He is not complaining of hematemesis. Bowel movements and flatulence have been normal. No fevers. MD elicited complaint: nausea, vomiting and abdominal pain Pertinent past history: cyclical vomiting Onset (ago): day(s) Associated nausea: Yes Associated abdominal pain: Yes Location of pain: Diffuse Radiation: diffuse Pain consistency: constant Severity: severe Quality: cramping and sharp Exacerbating factors: eating Relieving factors: other (marijuana) Context: marijuana use Associated symtoms: Reports anxiety and nausea; Denies chest pain, dysuria, fatigue, headache(s) or malaise Related Data Home Medications ?Medication ?Instructions ?Recorded ?Confirmed acetaminophen 325 mg capsule 650 mg PO QID PRN 3 04/17/25 (Tylenol) diphenhydramine HCl 25 mg capsule 25 mg PO TID PRN 04/17/25 (Allergy (diphenhydramine)) Previous Rx's ?Medication ?Instructions ?Recorded ondansetron 8 mg disintegrating 8 mg PO Q6H #14 tabs 0 04/17/25 tablet pantoprazole 40 mg tablet,delayed 40 mg PO DAILY acid reflux #30 tabs 04/17/25 release (Protonix) lorazepam 1 mg tablet (Ativan) 1 mg PO BID PRN nausea and 04/18/25 vomiting #7 tabs olanzapine 10 mg tablet 10 mg PO DAILY 3 days #3 tab s 04/18/25 Allergies Allergy/AdvReac Type Severity Reaction Status Date / Time Androgenic Anabolic Steroid Allergy ADR-Nausea Verified 04/17/25 09:19 haloperidol (From Haldol) Allergy ADR/ALGY-Pa Verified 04/18/25 09:24 lpitations iodine Allergy Unknown Verified 04/17/25 09:19 Penicillins Allergy Unknown Verified 04/17/25 09:19 Review of Systems 2 Const: Denies: fever(s), chills, body aches, fatigue or malaise Card: Denies: chest pain Resp: Denies: dyspnea GI: Reports: abdominal pain, nausea and vomiting; Denies: hematemesis, diarrhea, constipation or change in bowel habits : Denies: flank pain, difficulty urinating, dysuria, urinary frequency, urinary urgency or urinary hesitancy Musc: Denies: neck pain, back pain, extremity pain, extremity swelling, joint swelling or joint redness Skin/Breast: Denies: rash Neuro: Denies: headache(s), numbness in extremities, weakness in extremities or sensory changes Psych: Reports: anxiety and depression; Denies: suicidal ideation PFSH ED 2 PFSH: Medical History Nausea & vomiting Acid reflux Pancreatitis Surgical History History of tonsillectomy History of colonoscopy with polypectomy Family History Grandmother Cancer leukemia, heart, lung-Maternal Other Bleeding disorder CAD (coronary artery disease) Clotting disorder Dementia Diabetes Hyperlipidemia Hypertension Lung disease Psychiatric illness Stroke Denies family history of Chronic kidney disease (CKD) Anesthesia complication Social History Smoking and tobacco/nicotine status: former use of tobacco/nicotine Quit status (tobacco/nicotine): has quit using Alcohol intake: never Substance/Drug Use: current Substance/Drug use frequency: daily Lives independently: Yes Marital status: Single Number of children: 2 Current occupational status: employed 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 Agree to transfusion: Yes Physical Exam 2 Const: COMMON NORMALS: patient oriented x3, no limitations and alert G ENERAL APPEARANCE: cooperative, ill appearing and appears older than stated age ORIENTATION/CONSCIOUSNESS: Yes awake, Yes oriented to person, Yes oriented to place and Yes oriented to time Eye: COMMON NORMALS: no scleral icterus Neck/C-Spine: COMMON NORMALS: no lymphadenopathy and no meningeal signs Resp: COMMON NORMALS: normal respiratory effort and clear to auscultation bilaterally AUSCULTATION: clear to auscultation bilaterally Cardio: COMMON NORMALS: regular rate and regular rhythm RATE: regular rate RHYTHM: regular rhythm GI: COMMON NORMALS: Normal to inspection, nondistended, normoactive bowel sounds present, Soft to palpation and No hepatosplenomegaly present I NSPECTION: Yes normal to inspection AUSCULTATION: Yes normoactive bowel sounds PALPATION: Yes Soft to palpation, Yes Tenderness to palpation present (GI) (diffuse), No Guarding due to palpation present (GI), No Rigid due to palpation and Yes No hepatosplenomegaly present : COMMON NORMALS: Yes no CVA tenderness BLADDER/KIDNEY EXAM: Yes no CVA tenderness Back/Pelvis: COMMON NORMALS: no CVA tenderness and thoracic and lumbar spine normal to inspection Extremity: GENERAL: Yes normal exam except as noted Neuro: COMMON NORMALS: patient oriented x3, moves all extremities, no focal motor deficits, no sensory deficits noted and gait normal S ENSORIUM/ORIENTATION: Yes alert, Yes oriented to person, Yes oriented to place and Yes oriented to time MENINGEAL SIGNS: Yes no meningeal signs Skin: COMMON NORMALS: no rashes or lesions noted GENERAL SKIN EXAM: no rashes or lesions noted Course 2 Vital Signs: Vital signs: Vital Signs Temperature 97.7 F 04/18/25 09:21 Pulse Rate 106 H 04/18/25 11:23 Respiratory Rate 17 04/18/25 09:21 Blood Pressure 142/105 04/18/25 11:23 Pulse Oximetry 96 04/18/25 11:23 Oxygen Delivery Me thod Room Air 04/18/25 11:23 MDM - Nausea/Vomiting/Diarrhea Medical Decision Making Patient's history of identical episodes every 2 months over the past 5 years is consistent with a cyclic vomiting syndrome most likely related to his habitual marijuana use. He states he has been using since the age of 14. Patient's vital signs are stable here. His blood work overall is unremarkable. He has a reported allergy to Haldol. He was treated with IV Ativan, Reglan, and topical capsaicin cream to his abdomen. On reexamination, he feels significantly better. He is eating and drinking in the room. Will treat him with Ativan and Zyprexa over the next few days until episode subsides. Return precautions were discussed. He can otherwise continue to follow-up with primary care Medical Records I reviewed the patient's medical records. Lab Data I reviewed the patient's lab results. 04/18/25 09:43 04/18/25 09:43 Laboratory Results WBC 11.17 10^3/uL (3.29-11.43) 04/18/25 09:43 RBC 5.83 10^6/uL (3.85-5.65) H 04/18/25 09:43 Hgb 16.90 g/dL (11.27-16.99) 04/18/25 09:43 Hct 49.8 % (37-53) 04/18/25 09:43 MCV 85.4 fl (82-101) 04/18/25 09:43 MCH 29.0 pg (27-33) 04/18/25 09:43 MCHC 33.9 g/dL (30-55) 04/18/25 09:43 RDW 12.4 % (12.1-15.1) 04/18/25 09:43 Plt Count 288 10^3/cmm (157-399) 04/18/25 09:43 MPV 9.2 fL (7.4-10.4) 04/18/25 09:43 Neut % (Auto) 77.8 % 04/18/25 09:43 Lymph % (Auto) 15.0 % 04/18/25 09:43 [place] % (Auto) 6.5 % 04/18/25 09:43 Eos % (Auto) 0.0 % 04/18/25 09:43 Baso % (Auto) 0.3 % 04/18/25 09:43 Neut # (Auto) 8.70 10^3/uL (1.8-7.7) H 04/18/25 09:43 Lymph # (Auto) 1.7 10^3/uL (0.8-4.8) 04/18/25 09:43 [place] # (Auto) 0.7 10^3/uL (0.2-0.9) 04/18/25 09:43 Eos # (Auto) 0.0 10^3/uL (0.0-0.8) 04/18/25 09:43 Baso # (Auto) 0.0 10^3/uL (0.0-0.1) 04/18/25 09:43 Nucleated RBC % (auto) 0 % 04/18/25 09:43 Nucleated RBCs # 0.0 /100WBC 04/18/25 09:43 Sodium 138 mmol/L (136-145) 04/18/25 09:43 Potassium 4.0 mmol/L (3.5-5.1) 04/18/25 09:43 Chloride 99 mmol/L (98-107) 04/18/25 09:43 Carbon Dioxide 20 mmol/L (22-29) L 04/18/25 09:43 Anion Gap 23.0 (5-19) H 04/18/25 09:43 BUN 14 mg/dL (6-20) 04/18/25 09:43 Creatinine 1.0 mg/dL (0.7-1.2) 04/18/25 09:43 GFR Calculation 86.1 mL/min (90-130) L 04/18/25 09:43 Glucose 119 mg/dL (65-115) H 04/18/25 09:43 Calculated Osmolality 288 mOsm/kg (285-295) 04/18/25 09:43 Calcium 10.2 mg/dL (8.5-10.5) 04/18/25 09:43 Total Bilirubin 0.8 mg/dL (0.15-1.2) 04/18/25 09:43 AST 9 U/L (0-40) 04/18/25 09:43 ALT 28 U/L (0-41) 04/18/25 09:43 Alkaline Phosphatase 93 U/L (40-130) 04/18/25 09:43 Total Protein 9.3 g/dL (6.6-8.7) H 04/18/25 09:43 Albumin 5.2 g/dL (3.5-5.2) 04/18/25 09:43 Globulin 4.1 g/dL (1.3-4.6) 04/18/25 09:43 Lipase 21 U/L (13-60) 04/18/25 09:43 No radiology studies performed this visit Discharge Plan Discharge Patient Disposition: Home Clinical Impression: Cannabis hyperemesis syndrome concurrent with and due to cannabis abuse Condition: Stable Prescriptions: New lorazepam [Ativan] 1 mg tablet 1 mg PO BID PRN (Reason: nausea and vomiting) Qty: 7 0RF olanzapine 10 mg tablet 10 mg PO DAILY 3 Days Qty: 3 0RF No Action acetaminophen [Tylenol] 325 mg capsule 650 mg PO QID PRN diphenhydramine HCl [Allergy (diphenhydramine)] 25 mg capsule 25 mg PO TID PRN ondansetron 8 mg tablet,disintegrating 8 mg PO Q6H Qty: 14 0RF Rx Instructions: Take 1/2-1 tab every 6 hours as needed for nausea and vomiting pantoprazole [Protonix] 40 mg tablet,delayed release (DR/EC) 40 mg PO DAILY Qty: 30 0RF Discharge Orders: Discharge ED (Routine); Ordered 04/18/25 Ordered By: Betsy Cheng Referrals: Lyle Moctezuma MD [Primary Care Provider, Family Practice] Patient Instructions: Cannabis Use Disorder (ED), Cyclic Vomiting Syndrome (ED) Activity Restrictions/Additional Instructions: As we discussed, I suspect that your symptoms are due to a cyclic vomiting syndrome most likely due to your habitual cannabis use. Completely abstaining from marijuana for a significant amount of time (this may take years given the fact that you have been using over the past 20 years) is the only long-term treatment for this. You are prescribed medications to help in the meantime over the next few days until episode subsides. Continue to follow-up with primary care. They may continue plan for outpatient endoscopy. Print Language: Citizen [place] Coding Level of Care Code ED Food Vendor for Eleanor Parikh
[2025-04-18 09:21] VITALS: BP 145/106; PULSE 91; RESP 17; TEMP 36.5; O2SAT 95; BMI 25.3
[2025-04-18 09:23] VITALS: BP 143/113; PULSE 101; O2SAT 97
[2025-04-18 09:53] VITALS: BP 165/122; PULSE 97; O2SAT 94
[2025-04-18] MEDS: sodium chloride 0.9% 1,000 ML 999 ML IV (09:53)
[2025-04-18] MEDS: metoclopramide 5 mg/mL SDV 2 mL 10 MG IVP (09:53)
[2025-04-18] MEDS: LORazepam 1 MG/0.5 ML injection IVP (09:53)
[2025-04-18 09:55] LABS: Basophils % 0.3 %; Hematocrit 49.8 % (37-53); Lymphocytes # 1.7 10^3/uL (0.8-4.8); Mean Corpuscular HGB Conc 33.9 g/dL (30-55); Mean Corpuscular Volume 85.4 fl (82-101); Mean Platelet Volume 9.2 fL (7.4-10.4); Monocytes # 0.7 10^3/uL (0.2-0.9); Monocytes % 6.5 %; Neutrophils % 77.8 %; Nucleated Red Blood Cells % 0 %; Platelet Count 288 10^3/cmm (157-399); Red Blood Count 5.83 10^6/uL (3.85-5.65); Red Cell Distribution Width 12.4 % (12.1-15.1); White Blood Count 11.17 10^3/uL (3.29-11.43)
[2025-04-18 10:11] LABS: Alanine Aminotransferase 28 U/L (0-41); Albumin Level 5.2 g/dL (3.5-5.2); Alkaline Phosphatase 93 U/L (40-130); Aspartate Amino Transferase 9 U/L (0-40); Blood Urea Nitrogen 14 mg/dL (6-20); Calcium 10.2 mg/dL (8.5-10.5); Carbon Dioxide 20 mmol/L (22-29); Chloride 99 mmol/L (98-107); Creatinine Clr Calc Pharmacy 119.6153; Globulin 4.1 g/dL (1.3-4.6); Glomerular Filtration Rate 86.1 mL/min (90-130); Glucose 119 mg/dL (65-115); Lipase 21 U/L (13-60); Osmolality Calculated 288 mOsm/kg (285-295); Sodium 138 mmol/L (136-145); Total Protein 9.3 g/dL (6.6-8.7)
[2025-04-18 10:23] VITALS: BP 129/87
[2025-04-18] MEDS: capsaicin 0.025% cream 60 gm 1 APPLIC TOPICAL (10:24)
[2025-04-18 10:25] LABS: Total Bilirubin 0.8 mg/dL (0.15-1.2)
[2025-04-18 11:23] VITALS: BP 142/105; PULSE 106; O2SAT 96
== END 2025-04-18 11:35 | disposition home or self-care (01) ==
PROVIDERS: Emergency Provider Physician Assistant; PCP Family Medicine
DX: R11.2 Nausea with vomiting, unspecified (principal); F12.10 Cannabis abuse, uncomplicated; Z87.891 Personal history of nicotine dependence
CPT/HCPCS: 36415; 80053; 83690; 85025; 96361; 96374; 96375; 99284; J2060; J2765; J7030; J9999

== ENCOUNTER 2025-04-28 10:42 | Emergency (ER) | payer SELFPAY ==
[2025-04-28 10:45] VITALS: BP 156/123; PULSE 125; RESP 24; TEMP 37; O2SAT 99; BMI 25.7
--- NOTE | 2025-04-28 10:50 | W.ED.ALLEREA ---
HPI - Allergic Reaction General: Chief complaint: Allergic Reaction Stated complaint: allergic reation to meds, SOB Time Seen by Provider: 04/28/25 10:48 History of Present Illness: HPI narrative: 35-year-old male presents emergency room complaining of recently having started Seroquel and now having a reaction including nausea vomiting fullness in his throat. He has not had any difficult breathing. No hemoptysis or hematemesis Associated symptoms: Reports abdominal pain, nausea and vomiting Related Data Home Medications ?Medication ?Instructions ?Recorded ?Confirmed diphenhydramine HCl 25 mg capsule 25 mg PO TID PRN Allergic Reaction 04/07/23 04/28/25 (Allergy (diphenhydramine)) acetaminophen 325 mg tablet 650 mg PO QID PRN Fever Or Pain 04/28/25 04/28/25 (Tylenol) Previous Rx's ?Medication ?Instructions ?Recorded ondansetron 8 mg disintegrating 8 mg PO Q6H #14 tabs 04/17/25 tablet lorazepam 1 mg tablet (Ativan) 1 mg PO BID PRN nausea and 04/18/25 vomiting #7 tabs pantoprazole 40 mg tablet,delayed 40 mg PO DAILY PRN acid reflux #60 04/21/25 release (Protonix) tabs cetirizine 10 mg tablet 10 mg PO BID #20 tabs 04/28/25 methylprednisolone 4 mg tablets in See Rx Instructions PO .COMPLEX 04/28/25 a dose pack (Medrol (Macho)) #21 ea Allergies Allergy/AdvReac Type Severity Reaction Status Date / Time Androgenic Anabolic Steroid Allergy ADR-Nausea Verified 04/21/25 13:34 haloperidol (From Haldol) Allergy ADR/ALGY-Pa Verified 04/21/25 13:34 lpitations iodine Allergy Unknown Verified 04/21/25 13:34 Penicillins Allergy Unknown Verified 04/21/25 13:34 Review of Systems Const: Denies: fever(s) or chills Card: Denies: chest pain Resp: Denies: dyspnea GI: Reports: abdominal pain, nausea and vomiting : Denies: dysuria, urinary frequency or urinary urgency Musc: Denies: neck pain or back pain Skin/Breast: Denies: rash PFSH ED PFSH: Medical History Bipolar disorder Nausea & vomiting Acid reflux Pancreatitis Surgical History History of tonsillectomy History of colonoscopy with polypectomy Family History Grandmother Cancer leukemia, heart, lung-Maternal Other Bleeding disorder CAD (coronary artery disease) Clotting disorder Dementia Diabetes Hyperlipidemia Hypertension Lung disease Psychiatric illness Stroke Denies family history of Chronic kidney disease (CKD) Anesthesia complication Social History Smoking and tobacco/nicotine status: former use of tobacco/nicotine Quit status (tobacco/nicotine): has quit using Alcohol intake: never Substance/Drug Use: current Substance/Drug use frequency: daily Lives independently: Yes Marital status: Single Number of children: 2 Current occupational status: employed 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 Agree to transfusion: Yes Physical Exam Const: COMMON NORMALS: no acute distress GENERAL APPEARANCE: cooperative and comfortable ORIENTATION/CONSCIOUSNESS: Yes awake, Yes oriented to person, Yes oriented to place and Yes oriented to time HENMT: COMMON NORMALS: normocephalic, atraumatic and hearing grossly normal bilaterally HEAD & SCALP: normocephalic and atraumatic Resp: COMMON NORMALS: normal respiratory effort, No retractions, No use of accessory muscles and clear to auscultation bilaterally AUSCULTATION: clear to auscultation bilaterally Cardio: COMMON NORMALS: regular rate, regular rhythm and No murmurs present (Cardio) RATE: regular rate RHYTHM: regular rhythm GI: COMMON NORMALS: Soft to palpation and No hepatosplenomegaly present AUSCULTATION: Yes normoactive bowel sounds PALPATION: Yes Soft to palpation, No Tenderness to palpation present (GI), No Guarding due to palpation present (GI) and Yes No hepatosplenomegaly present Extremity: COMMON NORMALS: normal to inspection, capillary refill normal, no clubbing, cyanosis or edema, no calf tenderness and no pedal edema Neuro: SENSORIUM/ORIENTATION: Yes oriented to person, Yes oriented to place and Yes oriented to time Skin: COMMON NORMALS: no rashes or lesions noted GENERAL SKIN EXAM: no rashes or lesions noted Course Vital Signs: Vital signs: Vital Signs Temperature 98.6 F 04/28/25 10:45 Pulse Rate 76 04/28/25 12:00 Respiratory Rate 17 04/28/25 11:45 Blood Pressure 136/108 04/28/25 11:45 Pulse Oximetry 99 04/28/25 12:00 Oxygen Delivery Me thod Room Air 04/28/25 12:00 MDM - Allergic Reaction Medical Decision Making Improved after Benadryl and steroids. Will discharge patient home stop Seroquel cetirizine 10 mg twice daily for 10 days and steroid taper recheck for any worsening problems follow-up with primary care in regards to having had to stop the Seroquel. Medical Records I reviewed the patient's medical records. Lab Data I reviewed the patient's lab results. 04/28/25 10:45 04/28/25 10:45 Radiology Impressions Chest X-Ray 04/28/25 11:03 Impression: Negative chest. Laboratory Results WBC 8.48 10^3/uL (3.29-11.43) 04/28/25 10:45 RBC 5.17 10^6/uL (3.85-5.65) 04/28/25 10:45 Hgb 15.10 g/dL (11.27-16.99) 04/28/25 10:45 Hct 43.7 % (37-53) 04/28/25 10:45 MCV 84.5 fl (82-101) 04/28/25 10:45 MCH 29.2 pg (27-33) 04/28/25 10:45 MCHC 34.6 g/dL (30-55) 04/28/25 10:45 RDW 12.0 % (12.1-15.1) L 04/28/25 10:45 Plt Count 254 10^3/cmm (157-399) 04/28/25 10:45 MPV 9.4 fL (7.4-10.4) 04/28/25 10:45 Neut % (Auto) 38.5 % 04/28/25 10:45 Lymph % (Auto) 50.6 % 04/28/25 10:45 Bradley % (Auto) 7.9 % 04/28/25 10:45 Eos % (Auto) 2.2 % 04/28/25 10:45 Baso % (Auto) 0.4 % 04/28/25 10:45 Neut # (Auto) 3.27 10^3/uL (1.8-7.7) 04/28/25 10:45 Lymph # (Auto) 4.3 10^3/uL (0.8-4.8) 04/28/25 10:45 Bradley # (Auto) 0.7 10^3/uL (0.2-0.9) 04/28/25 10:45 Eos # (Auto) 0.2 10^3/uL (0.0-0.8) 04/28/25 10:45 Baso # (Auto) 0.0 10^3/uL (0.0-0.1) 04/28/25 10:45 Nucleated RBC % (auto) 0 % 04/28/25 10:45 Nucleated RBCs # 0.0 /100WBC 04/28/25 10:45 Sodium 140 mmol/L (136-145) 04/28/25 10:45 Potassium 4.0 mmol/L (3.5-5.1) 04/28/25 10:45 Chloride 101 mmol/L (98-107) 04/28/25 10:45 Carbon Dioxide 23 mmol/L (22-29) 04/28/25 10:45 Anion Gap 20.0 (5-19) H 04/28/25 10:45 BUN 10 mg/dL (6-20) 04/28/25 10:45 Creatinine 1.0 mg/dL (0.7-1.2) 04/28/25 10:45 GFR Calculation 86.1 mL/min (90-130) L 04/28/25 10:45 Glucose 90 mg/dL (65-115) 04/28/25 10:45 Calculated Osmolality 289 mOsm/kg (285-295) 04/28/25 10:45 Calcium 9.6 mg/dL (8.5-10.5) 04/28/25 10:45 Total Bilirubin 0.4 mg/dL (0.15-1.2) 04/28/25 10:45 AST 10 U/L (0-40) 04/28/25 10:45 ALT 28 U/L (0-41) 04/28/25 10:45 Alkaline Phosphatase 81 U/L (40-130) 04/28/25 10:45 Total Protein 8.0 g/dL (6.6-8.7) 04/28/25 10:45 Albumin 4.6 g/dL (3.5-5.2) 04/28/25 10:45 Globulin 3.4 g/dL (1.3-4.6) 04/28/25 10:45 All radiology interpretation(s) finalized by discharge Discharge Plan Discharge Patient Disposition: Home Clinical Impression: Allergic reaction Condition: Stable Prescriptions: New methylprednisolone [Medrol (Macho)] 4 mg tablets,dose pack See Rx Instructions .ROUTE .COMPLEX Qty: 21 0RF Rx Instructions: orally per package directions cetirizine 10 mg tablet 10 mg PO BID Qty: 20 0RF Discontinued quetiapine [Seroquel] 50 mg tablet See Rx Instructions PO BID Qty: 60 0RF Rx Instructions: Take 1 tablet TWICE daily x 7 days, then take TWO tablest TWICE daily orally twice a day; No Action pantoprazole [Protonix] 40 mg tablet,delayed release (DR/EC) 40 mg PO DAILY PRN (Reason: acid reflux) Qty: 60 3RF diphenhydramine HCl [Allergy (diphenhydramine)] 25 mg capsule 25 mg PO TID PRN (Reason: Allergic Reaction) ondansetron 8 mg tablet,disintegrating 8 mg PO Q6H Qty: 14 0RF Rx Instructions: Take 1/2-1 tab every 6 hours as needed for nausea and vomiting lorazepam [Ativan] 1 mg tablet 1 mg PO BID PRN (Reason: nausea and vomiting) Qty: 7 0RF acetaminophen [Tylenol] 325 mg Tablet 650 mg PO QID PRN (Reason: Fever Or Pain) Discharge Orders: Discharge ED (Routine); Ordered 04/28/25 Ordered By: Brandyn Sharma Referrals: Lyle Moctezuma MD [Primary Care Provider, Family Practice] Discharge Diet: Usual diet Discharge Activity: Resume usual activity Patient Instructions: Opioid Safety, Pain Management Activity Restrictions/Additional Instructions: Thank you for choosing [facility] for your healthcare needs today. It is very important that you follow up as instructed or that you return to the Emergency Department should you have concerns or if your condition changes or worsens in any way. You were seen in the emergency room with side effects of medication that you have taken. You are having nausea and vomiting even a slight rash. This improved with Pietrol who recommended that you stop the Seroquel. Start cetirizine 10 mg twice a day start a steroid taper beginning with the pills this evening. On follow-up with your primary care doctor to discuss stopping the Seroquel. Print Language: Spanish Coding Level of Care Code ED Paraprofessional Education Assistant for Eleanor Parikh
[2025-04-28 10:56] VITALS: BP 156/123; PULSE 106; RESP 16; O2SAT 97
--- NOTE | 2025-04-28 11:03 | XR_ITS ---
WS: [id number] Portable AP upright chest, 04/28/2025 Clinical Data: dyspnea/cough Comparison: Portable chest, 06/04/2024 Findings: No nodules, masses or effusions are seen. The heart is normal. The pulmonary vascularity is not increased. No pneumonia or pneumothorax is seen. Monitor leads are on the chest wall. XR/XR chest 1V portable [id number] Impression: Negative chest.
[2025-04-28 11:08] LABS: Basophils % 0.4 %; Eosinophils # 0.2 10^3/uL (0.0-0.8); Eosinophils % 2.2 %; Hematocrit 43.7 % (37-53); Lymphocytes # 4.3 10^3/uL (0.8-4.8); Lymphocytes % 50.6 %; Mean Corpuscular HGB Conc 34.6 g/dL (30-55); Mean Corpuscular Hemoglobin 29.2 pg (27-33); Mean Corpuscular Volume 84.5 fl (82-101); Mean Platelet Volume 9.4 fL (7.4-10.4); Monocytes # 0.7 10^3/uL (0.2-0.9); Monocytes % 7.9 %; Neutrophils # 3.27 10^3/uL (1.8-7.7); Neutrophils % 38.5 %; Nucleated Red Blood Cells % 0 %; Platelet Count 254 10^3/cmm (157-399); Red Blood Count 5.17 10^6/uL (3.85-5.65); White Blood Count 8.48 10^3/uL (3.29-11.43)
[2025-04-28] MEDS: sodium chloride 0.9% 1,000 ML 999 ML IV (11:15)
[2025-04-28] MEDS: diphenhydrAMINE 50 mg/mL SDV 1mL IVP (11:17)
[2025-04-28] MEDS: methylPREDNISolone sod succ 125 mg/2 mL INJ IVP (11:20)
[2025-04-28 11:25] LABS: Alanine Aminotransferase 28 U/L (0-41); Albumin Level 4.6 g/dL (3.5-5.2); Alkaline Phosphatase 81 U/L (40-130); Aspartate Amino Transferase 10 U/L (0-40); Blood Urea Nitrogen 10 mg/dL (6-20); Calcium 9.6 mg/dL (8.5-10.5); Carbon Dioxide 23 mmol/L (22-29); Chloride 101 mmol/L (98-107); Creatinine Clr Calc Pharmacy 120.4243; Globulin 3.4 g/dL (1.3-4.6); Glomerular Filtration Rate 86.1 mL/min (90-130); Glucose 90 mg/dL (65-115); Osmolality Calculated 289 mOsm/kg (285-295); Sodium 140 mmol/L (136-145); Total Bilirubin 0.4 mg/dL (0.15-1.2)
[2025-04-28 11:30] VITALS: BP 131/106; PULSE 86; RESP 19; O2SAT 99
[2025-04-28 11:45] VITALS: BP 136/108; PULSE 75; RESP 17; O2SAT 98
[2025-04-28 12:00] VITALS: PULSE 76; O2SAT 99
[2025-04-28 12:27] VITALS: BP 136/92; PULSE 90; O2SAT 96
== END 2025-04-28 12:28 | disposition home or self-care (01) ==
PROVIDERS: Emergency Provider Family Medicine; PCP Family Medicine
DX: T78.40XA Allergy, unspecified, initial encounter (principal); X58.XXXA Exposure to other specified factors, initial encounter; Z87.891 Personal history of nicotine dependence
CPT/HCPCS: 71045; 80053; 85025; 96361; 96374; 96375; 99284; J1200; J2919; J7030

== ENCOUNTER → 2025-05-08 15:20 | Outpatient (BNVA) | payer SELFPAY | PROVIDERS: PCP Family Medicine; Visit Provider Family Medicine | DX: K85.90 Acute pancreatitis without necrosis or infection, unspecified (principal) | CPT/HCPCS: 80053; 83036 ==